=== PATIENT | male | born 1975 | race Caucasian/White ===

== ENCOUNTER 2017-04-16 10:13 | Inpatient (IN) | payer MEDICARE, OTHER ==
[~2017-04-16] VITALS: Ht 170.2 cm; Wt 115.0 kg
[~2017-04-16 10:13] MED LIST: ASPI81 PO; CLON2 PO; DIVA500T52 PO; DOCU250C91 PO; FOLI1TAB61 PO; INSNOV SQ; INSU100V12 SQ; QUET200XR PO; SEVEC800 PO; SIMV-259 PO; ZIPR60CA2 PO
[2017-04-16] MEDS ORDERED: LISI-662 PO (10:35)
[2017-04-16 10:52] LABS: GLUCOSE,POINT OF CARE 151 MG/DL (70-110)
[2017-04-16 11:16] LABS: BASOPHILS # (AUTO) 0.03 K/uL (0.00-0.20); BASOPHILS % (AUTO) 0.4 % (0.0-2.0); EOSINOPHILS # (AUTO) 0.55 K/uL (0.00-0.70); EOSINOPHILS % (AUTO) 6.59 % (1.0-6.0); HEMATOCRIT 38.4 % (41-53); HEMOGLOBIN 12.6 g/dL (13.5-17.5); LYMPHOCYTES # (AUTO) 1.8 K/uL (1.0-4.8); LYMPHOCYTES % (AUTO) 21.7 % (22.0-44.0); MEAN CORPUSCULAR HEMOGLOBIN 30.6 pg (26.0-34.0); MEAN CORPUSCULAR HGB CONC 32.8 G/dL (31.0-37.0); MEAN CORPUSCULAR VOLUME 93 fL (80-100); MONOCYTES # (AUTO) 0.6 K/uL (0.1-1.0); MONOCYTES % (AUTO) 7.5 % (2.0-9.0); NEUTROPHILS # (AUTO) 5.3 K/uL (1.8-7.7); NEUTROPHILS % (AUTO) 63.9 % (40.0-70.0); PLATELET COUNT (AUTO) 304 K/uL (150-450); RED BLOOD CELL COUNT(AUTO) 4.11 MIL/uL (4.50-5.90); RED CELL DISTRIBUTION WIDTH 17.2 % (11.5-14.5); WHITE BLOOD COUNT (AUTO) 8.3 K/uL (4.5-11.0)
[2017-04-16 11:29] LABS: ALANINE AMINOTRANSFERASE 43 U/L (12-78); ALBUMIN 3.6 g/dL (3.4-5.0); ANION GAP 14 mmol/L (8-16); ASPARTATE AMINOTRANSFERASE 28 U/L (15-37); BILIRUBIN,TOTAL 0.4 mg/dL (0.1-1.0); CALCIUM, TOTAL 9.6 mg/dL (8.8-10.5); CARBON DIOXIDE 25 mmol/L (22-29); CHLORIDE 92 mmol/L (98-107); CREATININE 12.65 mg/dL (0.60-1.30); GLOMERULAR FILTR. RATE CALC 4 mL/min (>60); SODIUM SERUM 131 mmol/L (136-145); TOTAL PROTEIN, SERUM 8.3 g/dL (6.4-8.2); VALPROIC ACID 29 mcg/mL (50-100)
[2017-04-16 11:33] LABS: POTASSIUM 6.7 mmol/L (3.5-5.1)
[2017-04-16 11:34] LABS: UREA NITROGEN, BLOOD 105 mg/dL (7-18)
[2017-04-16 11:41] LABS: RBC MORPHOLOGY COMMENT ABNORMAL RBC MORPH
[2017-04-16] MEDS ORDERED: DEXTROSE 50%-WATER 25 GM/50 ML SYRINGE IVP ONE (11:45)
[2017-04-16] MEDS ORDERED: SODIUM BICARBONATE [ADULT] 8.4% 50 MEQ/50 ML SYRINGE IVP ONE (11:45)
[2017-04-16] MEDS ORDERED: SODIUM POLYSTYRENE SULFONATE 15 GM/60 ML SUSPENSION BOTTLE PO ONE (11:45)
[2017-04-16] MEDS ORDERED: CALCIUM GLUCONATE 100 MG/ML 10 ML IVP ONE (11:45)
[2017-04-16] MEDS ORDERED: INSULIN REGULAR, HUMAN 100 UNITS/ML IVP ONE (11:45)
[2017-04-16] MEDS ORDERED: ZIPR80CA2 PO (11:50)
[2017-04-16] MEDS ORDERED: CLON1 PO (11:50)
[2017-04-16] MEDS ORDERED: SIMV-261 PO (11:50)
[2017-04-16] MEDS ORDERED: LORazepam 2 MG/ML VIAL IM ONE (12:00)
[2017-04-16] MEDS ORDERED: DiphenhydrAMINE HCL 50 MG/ML VIAL IM ONE (12:00)
[2017-04-16] MEDS ORDERED: HALOPERIDOL LACTATE 5 MG/ML VIAL IM ONE (12:00)
[2017-04-16] MEDS ORDERED: HEPARIN SODIUM,PORCINE 1,000 UNITS/ML VIAL IVP ONE ×3 (12:00→16:45)
[2017-04-16] MEDS ORDERED: OLANZapine 5 MG RAPDIS TABLET PO PRN (12:30)
[2017-04-16] MEDS ORDERED: GuaiFENesin/D-METHORPHAN [SUGAR-FREE] 200-20MG/10 ML SYRUP UDCUP PO PRN (12:30)
[2017-04-16] MEDS ORDERED: MAGNESIUM HYDROXIDE SUSPENSION 30 ML UDCUP PO PRN (12:30)
[2017-04-16] MEDS ORDERED: LOPERAMIDE HCL 2 MG CAPSULE PO PRN (12:30)
[2017-04-16] MEDS ORDERED: PROMETHAZINE HCL 25 MG TABLET PO PRN (12:30)
[2017-04-16] MEDS ORDERED: MAG HYDROX/AL HYDROX/SIMETH ES 30 ML SUSPENSION UDCUP PO PRN (12:30)
[2017-04-16] MEDS ORDERED: LORazepam 2 MG TABLET PO PRN (12:30)
[2017-04-16] MEDS ORDERED: ACETAMINOPHEN 325 MG TABLET PO PRN ×2 (12:30→13:00)
[2017-04-16] MEDS ORDERED: TUBERCULIN, PURIFIED PROTEIN DERIVATIVE 5 TU/0.1 ML SYG ID ONE (12:30)
[2017-04-16] MEDS ORDERED: HydrOXYzine PAMOATE 50 MG CAPSULE PO PRN (12:30)
[2017-04-16 15:11] VITALS: BP 152/68
[2017-04-16] MEDS ORDERED: MANNITOL 25%-12.5 GM/50 ML VIAL IVP PRN (16:45)
[2017-04-16 20:05] VITALS: BP 120/74
[2017-04-16] MEDS: DIVALPROEX SODIUM 500 MG ER TABLET PO SCH (21:29)
[2017-04-16] MEDS: OLANZapine 5 MG RAPDIS TABLET PO SCH (21:29)
[2017-04-16] MEDS: THIAMINE HCL 100 MG TABLET PO SCH (21:29)
[2017-04-16] MEDS: VITAMIN B COMP/VIT C/FOLIC ACID CAPSULE PO SCH (21:38)
[2017-04-17] VITALS (7 sets, daily range): BP systolic 92–135; BP diastolic 56–86
[2017-04-17] MEDS: DOCUSATE SODIUM 100 MG CAPSULE PO SCH ×3 (01:15→20:48)
[2017-04-17] MEDS ORDERED: DIVALPROEX SODIUM 500 MG ER TABLET PO SCH ×2 (01:15→21:00)
[2017-04-17] MEDS ORDERED: 0.9% SODIUM CHLORIDE 10 ML SYRINGE IVP PRN (01:15)
[2017-04-17] MEDS ORDERED: ONDANSETRON HCL 4 MG/2 ML VIAL IVP PRN (01:15)
[2017-04-17] MEDS ORDERED: OxyCODONE HCL/ACETAMINOPHEN 5-325 MG TABLET PO PRN ×2 (01:15)
[2017-04-17] MEDS: ClonazePAM 0.5 MG TABLET PO SCH ×3 (01:15→20:48)
[2017-04-17 07:08] LABS: EOSINOPHILS % (AUTO) 0.4 % (1.0-6.0); HEMATOCRIT 37.2 % (41-53); HEMOGLOBIN 12.6 g/dL (13.5-17.5); LYMPHOCYTES # (AUTO) 0.4 K/uL (1.0-4.8); MEAN CORPUSCULAR HEMOGLOBIN 31.2 pg (26.0-34.0); MEAN CORPUSCULAR HGB CONC 33.7 G/dL (31.0-37.0); MEAN CORPUSCULAR VOLUME 92 fL (80-100); MONOCYTES # (AUTO) 0.6 K/uL (0.1-1.0); MONOCYTES % (AUTO) 3.3 % (2.0-9.0); NEUTROPHILS # (AUTO) 17.2 K/uL (1.8-7.7); PLATELET COUNT (AUTO) 298 K/uL (150-450); RED BLOOD CELL COUNT(AUTO) 4.03 MIL/uL (4.50-5.90); RED CELL DISTRIBUTION WIDTH 17.5 % (11.5-14.5); WHITE BLOOD COUNT (AUTO) 18.2 K/uL (4.5-11.0)
[2017-04-17 07:09] LABS: NEUTROPHILS % (AUTO) 94.3 % (40.0-70.0)
[2017-04-17 07:23] LABS: ALBUMIN 3.1 g/dL (3.4-5.0); BILIRUBIN,TOTAL 0.5 mg/dL (0.1-1.0); CALCIUM, TOTAL 9.1 mg/dL (8.8-10.5); CHOL/HDL RATIO 4.2 (4.2-7.3); CREATININE 8.6 mg/dL (0.60-1.30); MAGNESIUM 2.1 mg/dL (1.80-2.40); PHOSPHORUS 6.3 mg/dL (2.5-4.9); POTASSIUM 4.5 mmol/L (3.5-5.1); THYROID STIMULATING HORMONE 1.25 uIU/mL (0.36-3.74); TOTAL PROTEIN, SERUM 7.5 g/dL (6.4-8.2)
[2017-04-17 07:40] LABS: HEMOGLOBIN A1C 7.6 % (4.5-6.2)
[2017-04-17 08:14] LABS: RBC MORPHOLOGY COMMENT ABNORMAL RBC MORPH
[2017-04-17] MEDS: VITAMIN B COMP/VIT C/FOLIC ACID CAPSULE PO SCH (08:17)
[2017-04-17] MEDS: ASPIRIN 81 MG CHEWABLE TABLET PO SCH (08:17)
[2017-04-17] MEDS: THIAMINE HCL 100 MG TABLET PO SCH ×2 (08:18→20:48)
[2017-04-17] MEDS: SEVELAMER CARBONATE 800 MG TABLET PO SCH (08:18)
[2017-04-17] MEDS: FOLIC ACID 1 MG TABLET PO SCH (08:18)
[2017-04-17] MEDS: MULTIVITAMINS WITH MINERALS, THERAPEUTIC TABLET PO SCH (08:20)
[2017-04-17] MEDS: PANTOPRAZOLE SODIUM 40 MG/VIAL IVP SCH (08:20)
[2017-04-17] MEDS ORDERED: DOCUSATE SODIUM 250 MG CAPSULE PO SCH (09:00)
[2017-04-17] MEDS ORDERED: ZIPRASIDONE HCL 80 MG CAPSULE PO SCH ×2 (18:00)
[2017-04-17] MEDS: SIMVASTATIN 40 MG TABLET PO SCH (20:48)
[2017-04-17] MEDS: OLANZapine 5 MG RAPDIS TABLET PO SCH (20:49)
[2017-04-17] MEDS: DIVALPROEX SODIUM 500 MG ER TABLET PO SCH (20:49)
[2017-04-17] MEDS: ACETAMINOPHEN 325 MG TABLET PO PRN (20:58)
[2017-04-17] MEDS: INSULIN DETEMIR 100 UNITS/ML SQ SCH (21:00)
[2017-04-18] VITALS (35 sets, daily range): BP systolic 72–148; BP diastolic 44–101
[2017-04-18] MEDS: ACETAMINOPHEN 325 MG TABLET PO PRN ×3 (01:39→22:12)
[2017-04-18 06:07] LABS: GLUCOSE,POINT OF CARE 114 MG/DL (70-110)
[2017-04-18 06:09] LABS: EOSINOPHILS % (AUTO) 0.1 % (1.0-6.0); HEMATOCRIT 35.4 % (41-53); HEMOGLOBIN 11.9 g/dL (13.5-17.5); LYMPHOCYTES # (AUTO) 0.6 K/uL (1.0-4.8); LYMPHOCYTES % (AUTO) 3.1 % (22.0-44.0); MEAN CORPUSCULAR HEMOGLOBIN 31.1 pg (26.0-34.0); MEAN CORPUSCULAR HGB CONC 33.7 G/dL (31.0-37.0); MEAN CORPUSCULAR VOLUME 92 fL (80-100); MONOCYTES # (AUTO) 0.9 K/uL (0.1-1.0); MONOCYTES % (AUTO) 4.6 % (2.0-9.0); NEUTROPHILS # (AUTO) 18.3 K/uL (1.8-7.7); PLATELET COUNT (AUTO) 257 K/uL (150-450); RED BLOOD CELL COUNT(AUTO) 3.83 MIL/uL (4.50-5.90); RED CELL DISTRIBUTION WIDTH 17.8 % (11.5-14.5); WHITE BLOOD COUNT (AUTO) 19.9 K/uL (4.5-11.0)
[2017-04-18 06:23] LABS: CALCIUM, TOTAL 8.9 mg/dL (8.8-10.5); CREATININE 11.17 mg/dL (0.60-1.30); POTASSIUM 4.8 mmol/L (3.5-5.1)
[2017-04-18 07:02] LABS: NEUTROPHILS % (AUTO) 92.2 % (40.0-70.0)
[2017-04-18 07:49] LABS: RBC MORPHOLOGY COMMENT ABNORMAL RBC MORPH
[2017-04-18] MEDS ORDERED: SODIUM CHLORIDE 0.9% 250 ML IV ONE ×2 (09:44→10:42)
[2017-04-18] MEDS ORDERED: PIPERACILLIN SODIUM/TAZOBACTAM 0.75 GM in DEXTROSE 5%-WATER 50 ML IV PRN (09:45)
[2017-04-18] MEDS ORDERED: VANCOMYCIN HCL 1 GM/D5% WATER 200 ML IV PRN (09:45)
[2017-04-18] MEDS: PANTOPRAZOLE SODIUM 40 MG/VIAL IVP SCH (09:50)
[2017-04-18] MEDS: MULTIVITAMINS WITH MINERALS, THERAPEUTIC TABLET PO SCH (09:50)
[2017-04-18] MEDS: ASPIRIN 81 MG CHEWABLE TABLET PO SCH (09:51)
[2017-04-18] MEDS: VITAMIN B COMP/VIT C/FOLIC ACID CAPSULE PO SCH (09:51)
[2017-04-18] MEDS: DOCUSATE SODIUM 100 MG CAPSULE PO SCH ×2 (09:51→22:11)
[2017-04-18] MEDS ORDERED: PIPERACILLIN SODIUM/TAZOBACTAM 2.25 GM in DEXTROSE 5%-WATER 50 ML IV SCH (10:00)
[2017-04-18] MEDS ORDERED: VANCOMYCIN HCL 1 GM/D5% WATER 200 ML IV ONE (10:00)
[2017-04-18] MEDS: THIAMINE HCL 100 MG TABLET PO SCH ×2 (10:29→22:10)
[2017-04-18] MEDS: SEVELAMER CARBONATE 800 MG TABLET PO SCH (10:31)
[2017-04-18 12:18] LABS: GLUCOSE,POINT OF CARE 123 MG/DL (70-110)
[2017-04-18] MEDS: ClonazePAM 1 MG TABLET PO SCH ×2 (12:26→23:07)
[2017-04-18] MEDS: FOLIC ACID 1 MG TABLET PO SCH (12:26)
[2017-04-18] MEDS ORDERED: GENTAMICIN 120 MG/NACL ISO-OSM 100 ML IV ONE (13:00)
[2017-04-18] MEDS: SIMVASTATIN 40 MG TABLET PO SCH (22:11)
[2017-04-18] MEDS: DIVALPROEX SODIUM 500 MG ER TABLET PO SCH (22:11)
[2017-04-18] MEDS: RisperiDONE 0.5 MG TABLET PO SCH (22:11)
[2017-04-18] MEDS: OLANZapine 5 MG RAPDIS TABLET PO SCH (22:12)
[2017-04-18] MEDS: INSULIN DETEMIR 100 UNITS/ML SQ SCH (22:17)
[2017-04-18] MEDS: ClonazePAM 0.5 MG TABLET PO SCH (22:51)
[2017-04-19 01:08] VITALS: BP 107/63
[2017-04-19 05:47] VITALS: BP 101/63
[2017-04-19 07:23] LABS: BASOPHILS # (AUTO) 0.01 K/uL (0.00-0.20); BASOPHILS % (AUTO) 0.1 % (0.0-2.0); EOSINOPHILS # (AUTO) 0.13 K/uL (0.00-0.70); EOSINOPHILS % (AUTO) 0.84 % (1.0-6.0); HEMATOCRIT 31.9 % (41-53); HEMOGLOBIN 10.7 g/dL (13.5-17.5); LYMPHOCYTES # (AUTO) 0.9 K/uL (1.0-4.8); LYMPHOCYTES % (AUTO) 6.1 % (22.0-44.0); MEAN CORPUSCULAR HEMOGLOBIN 30.9 pg (26.0-34.0); MEAN CORPUSCULAR HGB CONC 33.4 G/dL (31.0-37.0); MEAN CORPUSCULAR VOLUME 92 fL (80-100); MONOCYTES # (AUTO) 1.4 K/uL (0.1-1.0); MONOCYTES % (AUTO) 9.2 % (2.0-9.0); NEUTROPHILS # (AUTO) 12.9 K/uL (1.8-7.7); NEUTROPHILS % (AUTO) 83.7 % (40.0-70.0); PLATELET COUNT (AUTO) 205 K/uL (150-450); RED BLOOD CELL COUNT(AUTO) 3.45 MIL/uL (4.50-5.90); RED CELL DISTRIBUTION WIDTH 17.4 % (11.5-14.5); WHITE BLOOD COUNT (AUTO) 15.4 K/uL (4.5-11.0)
[2017-04-19 07:33] VITALS: BP 101/54
[2017-04-19 07:50] LABS: CALCIUM, TOTAL 8.9 mg/dL (8.8-10.5); CREATININE 13.51 mg/dL (0.60-1.30); POTASSIUM 4.7 mmol/L (3.5-5.1)
[2017-04-19 08:28] LABS: RBC MORPHOLOGY COMMENT ABNORMAL RBC MORPH
[2017-04-19] MEDS: SEVELAMER CARBONATE 800 MG TABLET PO SCH (09:00)
[2017-04-19] MEDS: PANTOPRAZOLE SODIUM 40 MG/VIAL IVP SCH (09:00)
[2017-04-19] MEDS: DOCUSATE SODIUM 100 MG CAPSULE PO SCH ×2 (09:00→20:01)
[2017-04-19] MEDS: RisperiDONE 0.5 MG TABLET PO SCH ×2 (09:02→20:02)
[2017-04-19] MEDS: ClonazePAM 0.5 MG TABLET PO SCH ×2 (09:11→20:02)
[2017-04-19] MEDS: FOLIC ACID 1 MG TABLET PO SCH (09:12)
[2017-04-19] MEDS: THIAMINE HCL 100 MG TABLET PO SCH ×2 (09:12→20:01)
[2017-04-19] MEDS: MULTIVITAMINS WITH MINERALS, THERAPEUTIC TABLET PO SCH (09:12)
[2017-04-19 09:13] LABS: INR 1.1 (0.9-1.1); PROTHROMBIN TIME 11.8 SEC (9.4-11.6)
[2017-04-19] MEDS: VITAMIN B COMP/VIT C/FOLIC ACID CAPSULE PO SCH (09:55)
[2017-04-19] MEDS ORDERED: LIDOCAINE HCL/PF 1% 5 ML VIAL ONE (10:25)
[2017-04-19 10:59] VITALS: BP 108/66
[2017-04-19] MEDS ORDERED: VANCOMYCIN HCL 1 GM/D5% WATER 200 ML IV ONE (11:00)
[2017-04-19] MEDS: ASPIRIN 81 MG CHEWABLE TABLET PO SCH (12:35)
[2017-04-19] MEDS ORDERED: SODIUM CHLORIDE 0.9% 250 ML IV ONE (13:25)
[2017-04-19 14:43] VITALS: BP 105/58
[2017-04-19 19:27] VITALS: BP 107/60
[2017-04-19] MEDS: OLANZapine 5 MG RAPDIS TABLET PO SCH (20:01)
[2017-04-19] MEDS: DIVALPROEX SODIUM 500 MG ER TABLET PO SCH (20:01)
[2017-04-19] MEDS: SIMVASTATIN 40 MG TABLET PO SCH (20:02)
[2017-04-19] MEDS: INSULIN DETEMIR 100 UNITS/ML SQ SCH (21:57)
[2017-04-19 23:32] LABS: GLUCOSE,POINT OF CARE 139 MG/DL (70-110)
[2017-04-20 05:33] LABS: GLUCOSE,POINT OF CARE 120 MG/DL (70-110)
[2017-04-20 05:37] LABS: GLUCOSE,POINT OF CARE 96 MG/DL (70-110)
[2017-04-20 05:37] LABS: GLUCOSE,POINT OF CARE 129 MG/DL (70-110)
[2017-04-20 05:37] LABS: GLUCOSE,POINT OF CARE 89 MG/DL (70-110)
[2017-04-20 05:37] LABS: GLUCOSE,POINT OF CARE 104 MG/DL (70-110)
[2017-04-20 05:37] LABS: GLUCOSE,POINT OF CARE 100 MG/DL (70-110)
== END 2017-04-20 01:30 | disposition left against medical advice (07) | DRG 314 ==
LOC: EMS 10:16 → 5S 13:15 → 4E 04-18 00:15 → 5S 04-18 15:00
PROVIDERS: ADMIT Internal Medicine; ATTEND Internal Medicine
PROC: 5A1D70Z Performance of Urinary Filtration, Intermittent, Less than 6 Hours Per Day (ICD-10-PCS; principal; 2017-04-16)
DX: T82.7XXA Infection and inflammatory reaction due to other cardiac and vascular devices, implants and grafts, initial encounter (principal); A41.9 Sepsis, unspecified organism; I12.0 Hypertensive chronic kidney disease with stage 5 chronic kidney disease or end stage renal disease; E11.21 Type 2 diabetes mellitus with diabetic nephropathy; E87.5 Hyperkalemia; N18.6 End stage renal disease; Z68.41 Body mass index [BMI] 40.0-44.9, adult; F25.0 Schizoaffective disorder, bipolar type; E11.22 Type 2 diabetes mellitus with diabetic chronic kidney disease; E66.9 Obesity, unspecified; B95.8 Unspecified staphylococcus as the cause of diseases classified elsewhere; B96.89 Other specified bacterial agents as the cause of diseases classified elsewhere; E78.5 Hyperlipidemia, unspecified; M10.9 Gout, unspecified; Y84.8 Other medical procedures as the cause of abnormal reaction of the patient, or of later complication, without mention of misadventure at the time of the procedure; Z79.4 Long term (current) use of insulin; Z79.82 Long term (current) use of aspirin; Z79.899 Other long term (current) drug therapy; Z91.15 Patient's noncompliance with renal dialysis; Z91.19 Patient's noncompliance with other medical treatment and regimen; Z99.2 Dependence on renal dialysis; Z53.21 Procedure and treatment not carried out due to patient leaving prior to being seen by health care provider
CPT/HCPCS: 36590; 82962; 83036; 83735; 84100; 84132; 84439; 84443; 86592; 87040; 87070; 87081; 87086; 87147; 87205; 87340; 90935; 93005; 96372; 99291; C9113; G0480; J1200; J1580; J1630; J1644; J2060; J2405; J2543; J3370; J3490; J7050; J7060

== ENCOUNTER 2018-01-08 17:17 | Inpatient (IN) | payer MEDICARE, OTHER ==
[~2018-01-08] VITALS: Ht 182.9 cm; Wt 92.4 kg
[~2018-01-08 17:17] MED LIST changes: +CLON1 PO; -CLON2 PO; +LISI-662 PO; -QUET200XR PO; -SIMV-259 PO; +SIMV-261 PO; -ZIPR60CA2 PO; +ZIPR80CA2 PO
[2018-01-08] MEDS ORDERED: EPOE10I SQ (18:16)
[2018-01-08] MEDS ORDERED: PHOSLOC PO (18:16)
[2018-01-08] MEDS ORDERED: CARV3 PO (18:16)
[2018-01-08] MEDS ORDERED: OLAN10TA3 PO (18:16)
[2018-01-08] MEDS ORDERED: CINA30 PO (18:16)
[2018-01-08] MEDS ORDERED: INSU100V SQ (18:16)
[2018-01-08] MEDS ORDERED: PANT40TA25 PO (18:16)
[2018-01-08] MEDS ORDERED: BISA10S PR (18:16)
[2018-01-08] MEDS ORDERED: FOLI1CAP2 PO (18:16)
[2018-01-08] MEDS ORDERED: BUME1TAB17 PO (18:16)
[2018-01-08] MEDS ORDERED: SIMV-261 PO (18:16)
[2018-01-08 20:10] LABS: GLUCOSE,POINT OF CARE 87 MG/DL (70-110)
[2018-01-08 20:22] LABS: BASOPHILS % (AUTO) 1.1 % (0.0-2.0); HEMATOCRIT 25.2 % (41-53); HEMOGLOBIN 8.5 g/dL (13.5-17.5); LYMPHOCYTES # (AUTO) 2.9 K/uL (1.0-4.8); LYMPHOCYTES % (AUTO) 37.3 % (22.0-44.0); MEAN CORPUSCULAR HEMOGLOBIN 30.7 pg (26.0-34.0); MEAN CORPUSCULAR HGB CONC 33.8 G/dL (31.0-37.0); MEAN CORPUSCULAR VOLUME 91 fL (80-100); MONOCYTES # (AUTO) 0.8 K/uL (0.1-1.0); MONOCYTES % (AUTO) 9.7 % (2.0-9.0); NEUTROPHILS # (AUTO) 3.9 K/uL (1.8-7.7); NEUTROPHILS % (AUTO) 50.9 % (40.0-70.0); PLATELET COUNT (AUTO) 283 K/uL (150-450); RED BLOOD CELL COUNT(AUTO) 2.77 MIL/uL (4.50-5.90); RED CELL DISTRIBUTION WIDTH 15.2 % (11.5-14.5)
[2018-01-08 20:46] LABS: ANION GAP 10 mmol/L (8-16); CALCIUM, TOTAL 8.8 mg/dL (8.8-10.5); CARBON DIOXIDE 30 mmol/L (22-29); CHLORIDE 103 mmol/L (98-107); CREATININE 8.79 mg/dL (0.60-1.30); GLOMERULAR FILTR. RATE CALC 7 mL/min (>60); GLUCOSE,RANDOM 86 mg/dL (70-110); POTASSIUM 5.7 mmol/L (3.5-5.1); SODIUM SERUM 143 mmol/L (136-145); UREA NITROGEN, BLOOD 67 mg/dL (7-18)
[2018-01-08 20:52] LABS: ALANINE AMINOTRANSFERASE 17 U/L (12-78); ALBUMIN 2.8 g/dL (3.4-5.0); ALKALINE PHOSPHATASE 119 U/L (46-116); ASPARTATE AMINOTRANSFERASE 17 U/L (15-37); BILIRUBIN,TOTAL 0.3 mg/dL (0.1-1.0); TOTAL PROTEIN, SERUM 6.9 g/dL (6.4-8.2)
[2018-01-08] MEDS ORDERED: INSULIN REGULAR, HUMAN 100 UNITS/ML SQ ONE (22:00)
[2018-01-08] MEDS ORDERED: DEXTROSE 50%-WATER 25 GM/50 ML SYRINGE IVP ONE (22:00)
[2018-01-08] MEDS ORDERED: ALBUTEROL SULFATE 5 MG/ML 20 ML NEB SOLN [BULK] NEB ONE (22:00)
[2018-01-08] MEDS ORDERED: SODIUM POLYSTYRENE SULFONATE 15 GM/60 ML SUSPENSION BOTTLE PO ONE (22:00)
[2018-01-08] MEDS ORDERED: HALOPERIDOL 5 MG TABLET PO ONE (22:15)
[2018-01-08] MEDS ORDERED: DiphenhydrAMINE HCL 25 MG CAPSULE PO ONE (22:15)
[2018-01-08] MEDS ORDERED: LORazepam 2 MG TABLET PO ONE (22:15)
[2018-01-08] MEDS ORDERED: 0.9% SODIUM CHLORIDE 5 ML NEB SOLUTION NEB ONE (22:36)
[2018-01-09 15:17] LABS: BASOPHILS % (AUTO) 0.7 % (0.0-2.0); EOSINOPHILS % (AUTO) 0.9 % (1.0-6.0); HEMATOCRIT 26.6 % (41-53); LYMPHOCYTES # (AUTO) 2.3 K/uL (1.0-4.8); LYMPHOCYTES % (AUTO) 30.6 % (22.0-44.0); MEAN CORPUSCULAR HEMOGLOBIN 30.8 pg (26.0-34.0); MEAN CORPUSCULAR VOLUME 91 fL (80-100); MONOCYTES # (AUTO) 0.5 K/uL (0.1-1.0); MONOCYTES % (AUTO) 6.9 % (2.0-9.0); NEUTROPHILS # (AUTO) 4.6 K/uL (1.8-7.7); NEUTROPHILS % (AUTO) 60.9 % (40.0-70.0); PLATELET COUNT (AUTO) 256 K/uL (150-450); RED BLOOD CELL COUNT(AUTO) 2.94 MIL/uL (4.50-5.90); RED CELL DISTRIBUTION WIDTH 15.2 % (11.5-14.5)
[2018-01-09 15:31] LABS: ANION GAP 15 mmol/L (8-16); CALCIUM, TOTAL 9.1 mg/dL (8.8-10.5); CARBON DIOXIDE 26 mmol/L (22-29); CHLORIDE 103 mmol/L (98-107); CREATININE 9.89 mg/dL (0.60-1.30); GLOMERULAR FILTR. RATE CALC 6 mL/min (>60); GLUCOSE,RANDOM 115 mg/dL (70-110); POTASSIUM 5.4 mmol/L (3.5-5.1); SODIUM SERUM 144 mmol/L (136-145); UREA NITROGEN, BLOOD 86 mg/dL (7-18)
[2018-01-09 15:33] LABS: ALANINE AMINOTRANSFERASE 19 U/L (12-78); ALBUMIN 2.9 g/dL (3.4-5.0); ALKALINE PHOSPHATASE 113 U/L (46-116); ASPARTATE AMINOTRANSFERASE 17 U/L (15-37); BILIRUBIN,TOTAL 0.5 mg/dL (0.1-1.0); LIPASE 173 U/L (73-393); TOTAL PROTEIN, SERUM 7.1 g/dL (6.4-8.2)
[2018-01-09 16:24] LABS: B-TYPE NATRIURETIC PEPTIDE > 5000 pg/mL (0-100)
[2018-01-10 08:07] LABS: BASOPHILS % (AUTO) 1.4 % (0.0-2.0); HEMATOCRIT 28.2 % (41-53); HEMOGLOBIN 9.5 g/dL (13.5-17.5); LYMPHOCYTES # (AUTO) 1.9 K/uL (1.0-4.8); LYMPHOCYTES % (AUTO) 20.6 % (22.0-44.0); MEAN CORPUSCULAR HEMOGLOBIN 30.5 pg (26.0-34.0); MEAN CORPUSCULAR HGB CONC 33.7 G/dL (31.0-37.0); MEAN CORPUSCULAR VOLUME 91 fL (80-100); MONOCYTES # (AUTO) 0.7 K/uL (0.1-1.0); NEUTROPHILS # (AUTO) 6.3 K/uL (1.8-7.7); PLATELET COUNT (AUTO) 238 K/uL (150-450); RED BLOOD CELL COUNT(AUTO) 3.11 MIL/uL (4.50-5.90); RED CELL DISTRIBUTION WIDTH 15.5 % (11.5-14.5)
[2018-01-10 08:15] LABS: CALCIUM, TOTAL 9.3 mg/dL (8.8-10.5); CREATININE 10.69 mg/dL (0.60-1.30); POTASSIUM 5.8 mmol/L (3.5-5.1)
[2018-01-10 08:20] LABS: BILIRUBIN,TOTAL 0.5 mg/dL (0.1-1.0); TOTAL PROTEIN, SERUM 7.4 g/dL (6.4-8.2)
[2018-01-10] MEDS ORDERED: ACETAMINOPHEN 325 MG TABLET PO PRN (08:30)
[2018-01-10] MEDS ORDERED: MAGNESIUM HYDROXIDE SUSPENSION 30 ML UDCUP PO PRN (08:30)
[2018-01-10] MEDS ORDERED: HYDROCODONE/ACETAMINOPHEN 5-325 MG TABLET PO PRN (08:30)
[2018-01-10] MEDS ORDERED: MORPHINE SULFATE 2 MG/ML SYRINGE IVP PRN (08:30)
[2018-01-10] MEDS ORDERED: BISACODYL 10 MG RECTAL RECTAL SUPPOSITORY PR PRN (08:30)
[2018-01-10] MEDS ORDERED: ONDANSETRON HCL 4 MG/2 ML VIAL IVP PRN (08:30)
[2018-01-10] MEDS ORDERED: ZOLPIDEM TARTRATE 5 MG TABLET PO PRN (08:30)
[2018-01-10] MEDS ORDERED: ClonazePAM 1 MG TABLET PO SCH (09:00)
[2018-01-10] MEDS ORDERED: DIVALPROEX SODIUM 500 MG ER TABLET PO SCH (09:00)
[2018-01-10 09:10] VITALS: BP 116/81
[2018-01-10] MEDS: PANTOPRAZOLE SODIUM 40 MG DR TABLET PO SCH (09:16)
[2018-01-10] MEDS: ASPIRIN 81 MG CHEWABLE TABLET PO SCH (09:16)
[2018-01-10] MEDS: CARVEDILOL 3.125 MG TABLET PO SCH ×2 (09:16→20:56)
[2018-01-10] MEDS: OLANZapine 10 MG TABLET PO SCH ×3 (09:16→21:00)
[2018-01-10] MEDS: SIMVASTATIN 40 MG TABLET PO SCH (09:16)
[2018-01-10] MEDS: DOCUSATE SODIUM 100 MG CAPSULE PO SCH ×2 (09:16→20:55)
[2018-01-10] MEDS: BUMETANIDE 1 MG TABLET PO SCH (09:17)
[2018-01-10] MEDS: CALCIUM ACETATE 667 MG CAPSULE PO SCH ×2 (15:50→18:13)
[2018-01-10] MEDS: HEPARIN SODIUM,PORCINE 5,000 UNITS/ML VIAL SQ SCH (15:50)
[2018-01-10 16:14] VITALS: BP 134/82
[2018-01-10 19:37] VITALS: BP 128/74
[2018-01-10] MEDS: DIVALPROEX SODIUM 500 MG ER TABLET PO SCH (20:55)
[2018-01-10 23:23] VITALS: BP 132/81
[2018-01-11 05:20] VITALS: BP 142/84
[2018-01-11] MEDS: HEPARIN SODIUM,PORCINE 5,000 UNITS/ML VIAL SQ SCH ×4 (08:18→23:30)
[2018-01-11] MEDS: PANTOPRAZOLE SODIUM 40 MG DR TABLET PO SCH (08:18)
[2018-01-11] MEDS: DOCUSATE SODIUM 100 MG CAPSULE PO SCH ×2 (08:18→20:03)
[2018-01-11] MEDS: SIMVASTATIN 40 MG TABLET PO SCH (08:18)
[2018-01-11] MEDS: CALCIUM ACETATE 667 MG CAPSULE PO SCH ×3 (08:18→18:29)
[2018-01-11] MEDS: ASPIRIN 81 MG CHEWABLE TABLET PO SCH (08:18)
[2018-01-11] MEDS: CINACALCET HCL 30 MG TABLET PO SCH (08:19)
[2018-01-11] MEDS: DIVALPROEX SODIUM 500 MG ER TABLET PO SCH ×2 (08:19→20:04)
[2018-01-11] MEDS: CARVEDILOL 3.125 MG TABLET PO SCH ×2 (08:19→20:03)
[2018-01-11 08:20] VITALS: BP 159/94
[2018-01-11] MEDS: BUMETANIDE 1 MG TABLET PO SCH (08:20)
[2018-01-11] MEDS: OLANZapine 10 MG TABLET PO SCH ×3 (08:20→20:03)
[2018-01-11] MEDS: VITAMIN B COMP/VIT C/FOLIC ACID CAPSULE PO SCH (10:25)
[2018-01-11] MEDS ORDERED: MANNITOL 25%-12.5 GM/50 ML VIAL IVP PRN (15:00)
[2018-01-11 15:50] VITALS: BP 158/100
[2018-01-11 20:48] VITALS: BP 152/86
[2018-01-12 01:12] VITALS: BP 143/77
[2018-01-12 05:00] VITALS: BP 148/84
[2018-01-12 07:45] VITALS: BP 128/81
[2018-01-12] MEDS: HEPARIN SODIUM,PORCINE 5,000 UNITS/ML VIAL SQ SCH ×4 (08:00→23:59)
[2018-01-12] MEDS: ASPIRIN 81 MG CHEWABLE TABLET PO SCH (08:03)
[2018-01-12] MEDS: VITAMIN B COMP/VIT C/FOLIC ACID CAPSULE PO SCH (08:03)
[2018-01-12] MEDS: PANTOPRAZOLE SODIUM 40 MG DR TABLET PO SCH (08:03)
[2018-01-12] MEDS: SIMVASTATIN 40 MG TABLET PO SCH (08:03)
[2018-01-12] MEDS: CARVEDILOL 3.125 MG TABLET PO SCH ×2 (08:03→19:49)
[2018-01-12] MEDS: DOCUSATE SODIUM 100 MG CAPSULE PO SCH ×2 (08:03→19:49)
[2018-01-12] MEDS: OLANZapine 10 MG TABLET PO SCH ×2 (08:04→19:49)
[2018-01-12] MEDS: CINACALCET HCL 30 MG TABLET PO SCH (08:04)
[2018-01-12] MEDS: CALCIUM ACETATE 667 MG CAPSULE PO SCH ×3 (08:04→17:38)
[2018-01-12] MEDS: DIVALPROEX SODIUM 500 MG ER TABLET PO SCH ×2 (08:04→19:49)
[2018-01-12] MEDS: BUMETANIDE 1 MG TABLET PO SCH (08:04)
[2018-01-12 11:25] VITALS: BP 145/92
[2018-01-12 11:58] LABS: GLUCOMETER DEV NAME(LOC) 6N 1E; GLUCOSE,POINT OF CARE 135 MG/DL (70-110)
[2018-01-12 12:49] LABS: CALCIUM, TOTAL 8.7 mg/dL (8.8-10.5); CREATININE 7.8 mg/dL (0.60-1.30); POTASSIUM 4.8 mmol/L (3.5-5.1)
[2018-01-12 15:45] VITALS: BP 132/85
[2018-01-12 19:48] LABS: GLUCOMETER DEV NAME(LOC) 6N 1E; GLUCOSE,POINT OF CARE 77 MG/DL (70-110)
[2018-01-12 19:50] VITALS: BP 143/85
[2018-01-13 00:06] VITALS: BP 143/93
[2018-01-13 04:00] VITALS: BP 118/85
[2018-01-13 06:36] LABS: CALCIUM, TOTAL 8.5 mg/dL (8.8-10.5); CREATININE 9.69 mg/dL (0.60-1.30); POTASSIUM 5.8 mmol/L (3.5-5.1)
[2018-01-13] MEDS ORDERED: SODIUM POLYSTYRENE SULFONATE 15 GM/60 ML SUSPENSION BOTTLE PO ONE (07:00)
[2018-01-13 07:44] VITALS: BP 120/87
[2018-01-13] MEDS: HEPARIN SODIUM,PORCINE 5,000 UNITS/ML VIAL SQ SCH ×3 (08:00→16:00)
[2018-01-13] MEDS: CALCIUM ACETATE 667 MG CAPSULE PO SCH ×3 (08:03→17:10)
[2018-01-13] MEDS: OLANZapine 10 MG TABLET PO SCH ×2 (08:03→19:54)
[2018-01-13] MEDS: VITAMIN B COMP/VIT C/FOLIC ACID CAPSULE PO SCH (08:03)
[2018-01-13] MEDS: PANTOPRAZOLE SODIUM 40 MG DR TABLET PO SCH (08:03)
[2018-01-13] MEDS: SIMVASTATIN 40 MG TABLET PO SCH (08:03)
[2018-01-13] MEDS: CARVEDILOL 3.125 MG TABLET PO SCH ×2 (08:03→19:54)
[2018-01-13] MEDS: ASPIRIN 81 MG CHEWABLE TABLET PO SCH (08:03)
[2018-01-13] MEDS: BUMETANIDE 1 MG TABLET PO SCH (08:03)
[2018-01-13] MEDS: DOCUSATE SODIUM 100 MG CAPSULE PO SCH ×2 (08:03→19:55)
[2018-01-13] MEDS: CINACALCET HCL 30 MG TABLET PO SCH (08:04)
[2018-01-13] MEDS: DIVALPROEX SODIUM 500 MG ER TABLET PO SCH ×2 (08:05→19:56)
[2018-01-13 12:22] VITALS: BP 135/75
[2018-01-13] MEDS ORDERED: SODIUM CHLORIDE 0.9% 1,000 ML IV ONE (12:27)
[2018-01-13 12:28] LABS: GLUCOMETER DEV NAME(LOC) 6N 2D; GLUCOSE,POINT OF CARE 158 MG/DL (70-110)
[2018-01-13 15:18] LABS: GLUCOMETER DEV NAME(LOC) 6N 1E; GLUCOSE,POINT OF CARE 95 MG/DL (70-110)
[2018-01-13 17:01] VITALS: BP 145/85
[2018-01-13 19:30] VITALS: BP 150/87
[2018-01-14 00:07] VITALS: BP 146/78
[2018-01-14 04:45] VITALS: BP 162/106
[2018-01-14 05:59] LABS: GLUCOMETER DEV NAME(LOC) 6N 2D; GLUCOSE,POINT OF CARE 95 MG/DL (70-110)
[2018-01-14 07:06] LABS: CALCIUM, TOTAL 8.6 mg/dL (8.8-10.5); CREATININE 7.12 mg/dL (0.60-1.30); MAGNESIUM 1.8 mg/dL (1.80-2.40); PHOSPHORUS 4.9 mg/dL (2.5-4.9); POTASSIUM 4.3 mmol/L (3.5-5.1)
[2018-01-14] MEDS: HEPARIN SODIUM,PORCINE 5,000 UNITS/ML VIAL SQ SCH ×4 (08:00→23:13)
[2018-01-14] MEDS: VITAMIN B COMP/VIT C/FOLIC ACID CAPSULE PO SCH (08:47)
[2018-01-14] MEDS: DOCUSATE SODIUM 100 MG CAPSULE PO SCH ×2 (08:48→19:58)
[2018-01-14] MEDS: CALCIUM ACETATE 667 MG CAPSULE PO SCH ×3 (08:48→17:44)
[2018-01-14] MEDS: DIVALPROEX SODIUM 500 MG ER TABLET PO SCH ×2 (08:48→19:59)
[2018-01-14] MEDS: CARVEDILOL 3.125 MG TABLET PO SCH ×2 (08:49→19:58)
[2018-01-14] MEDS: OLANZapine 10 MG TABLET PO SCH ×2 (08:49→19:59)
[2018-01-14] MEDS: BUMETANIDE 1 MG TABLET PO SCH (08:49)
[2018-01-14] MEDS: CINACALCET HCL 30 MG TABLET PO SCH (08:50)
[2018-01-14] MEDS: ASPIRIN 81 MG CHEWABLE TABLET PO SCH (08:50)
[2018-01-14] MEDS: PANTOPRAZOLE SODIUM 40 MG DR TABLET PO SCH (08:50)
[2018-01-14] MEDS: SIMVASTATIN 40 MG TABLET PO SCH (08:50)
[2018-01-14 08:54] VITALS: BP 130/65
[2018-01-14] MEDS: EPOETIN ALFA 10,000 UNITS/ML VIAL SQ SCH ×2 (12:16→17:41)
[2018-01-14 19:19] LABS: GLUCOMETER DEV NAME(LOC) 6N 2D; GLUCOSE,POINT OF CARE 98 MG/DL (70-110)
[2018-01-14 19:19] LABS: GLUCOMETER DEV NAME(LOC) 6N 2D; GLUCOSE,POINT OF CARE 123 MG/DL (70-110)
[2018-01-14 19:27] VITALS: BP 153/85
[2018-01-14 20:34] LABS: GLUCOMETER DEV NAME(LOC) 6N 1E; GLUCOSE,POINT OF CARE 151 MG/DL (70-110)
[2018-01-14 23:30] VITALS: BP 145/72
[2018-01-15 04:04] VITALS: BP 139/88
[2018-01-15 06:11] LABS: GLUCOMETER DEV NAME(LOC) 6N 1E; GLUCOSE,POINT OF CARE 86 MG/DL (70-110)
[2018-01-15 07:17] VITALS: BP 145/89
[2018-01-15] MEDS ORDERED: SODIUM CHLORIDE 0.9% 2,000 ML IV ONE (07:33)
[2018-01-15] MEDS: HALOPERIDOL 1 MG TABLET PO PRN (07:40)
[2018-01-15] MEDS: LORazepam 1 MG TABLET PO PRN ×2 (07:40→16:02)
[2018-01-15] MEDS: CALCIUM ACETATE 667 MG CAPSULE PO SCH ×3 (08:00→18:33)
[2018-01-15] MEDS: HEPARIN SODIUM,PORCINE 5,000 UNITS/ML VIAL SQ SCH ×4 (08:00→23:49)
[2018-01-15] MEDS ORDERED: MANNITOL 25%-12.5 GM/50 ML VIAL IVP PRN (08:15)
[2018-01-15 12:13] VITALS: BP 138/86
[2018-01-15] MEDS: PANTOPRAZOLE SODIUM 40 MG DR TABLET PO SCH (12:14)
[2018-01-15] MEDS: CINACALCET HCL 30 MG TABLET PO SCH (12:14)
[2018-01-15] MEDS: SIMVASTATIN 40 MG TABLET PO SCH (12:14)
[2018-01-15] MEDS: CARVEDILOL 3.125 MG TABLET PO SCH ×2 (12:14→21:10)
[2018-01-15] MEDS: DOCUSATE SODIUM 100 MG CAPSULE PO SCH ×2 (12:14→21:10)
[2018-01-15] MEDS: ASPIRIN 81 MG CHEWABLE TABLET PO SCH (12:14)
[2018-01-15] MEDS: DIVALPROEX SODIUM 500 MG ER TABLET PO SCH ×2 (12:15→21:11)
[2018-01-15] MEDS: OLANZapine 10 MG TABLET PO SCH ×2 (12:15→21:11)
[2018-01-15] MEDS: BUMETANIDE 1 MG TABLET PO SCH (12:15)
[2018-01-15 12:23] LABS: GLUCOMETER DEV NAME(LOC) 6N 2D; GLUCOSE,POINT OF CARE 189 MG/DL (70-110)
[2018-01-15] MEDS: VITAMIN B COMP/VIT C/FOLIC ACID CAPSULE PO SCH (12:28)
[2018-01-15 16:38] VITALS: BP 139/88
[2018-01-15 17:24] LABS: GLUCOMETER DEV NAME(LOC) 6N 2D; GLUCOSE,POINT OF CARE 96 MG/DL (70-110)
[2018-01-15 20:15] VITALS: BP 143/77
[2018-01-16 00:20] VITALS: BP 140/93
[2018-01-16 05:45] VITALS: BP 138/84
[2018-01-16 07:26] VITALS: BP 172/99
[2018-01-16] MEDS: HEPARIN SODIUM,PORCINE 5,000 UNITS/ML VIAL SQ SCH ×4 (08:00→23:57)
[2018-01-16 08:19] LABS: GLUCOMETER DEV NAME(LOC) 6N 2D; GLUCOSE,POINT OF CARE 77 MG/DL (70-110)
[2018-01-16] MEDS: EPOETIN ALFA 10,000 UNITS/ML VIAL SQ SCH ×2 (09:00→09:07)
[2018-01-16] MEDS: CINACALCET HCL 30 MG TABLET PO SCH (09:05)
[2018-01-16] MEDS: DIVALPROEX SODIUM 500 MG ER TABLET PO SCH ×2 (09:05→21:10)
[2018-01-16] MEDS: CARVEDILOL 3.125 MG TABLET PO SCH ×2 (09:05→21:11)
[2018-01-16] MEDS: BUMETANIDE 1 MG TABLET PO SCH (09:05)
[2018-01-16] MEDS: ASPIRIN 81 MG CHEWABLE TABLET PO SCH (09:06)
[2018-01-16] MEDS: DOCUSATE SODIUM 100 MG CAPSULE PO SCH ×2 (09:06→21:11)
[2018-01-16] MEDS: PANTOPRAZOLE SODIUM 40 MG DR TABLET PO SCH (09:06)
[2018-01-16] MEDS: OLANZapine 10 MG TABLET PO SCH ×2 (09:06→21:00)
[2018-01-16] MEDS: CALCIUM ACETATE 667 MG CAPSULE PO SCH ×3 (09:06→17:16)
[2018-01-16] MEDS: SIMVASTATIN 40 MG TABLET PO SCH (09:06)
[2018-01-16 11:04] VITALS: BP 119/95
[2018-01-16 13:18] LABS: GLUCOMETER DEV NAME(LOC) 6N 2D; GLUCOSE,POINT OF CARE 105 MG/DL (70-110)
[2018-01-16 15:04] VITALS: BP 150/91
[2018-01-16 20:10] VITALS: BP 128/81
[2018-01-16 22:18] LABS: GLUCOMETER DEV NAME(LOC) 6N 2D; GLUCOSE,POINT OF CARE 117 MG/DL (70-110)
[2018-01-17 00:55] VITALS: BP 146/83
[2018-01-17 05:40] VITALS: BP 123/81
[2018-01-17 06:49] LABS: GLUCOMETER DEV NAME(LOC) 6N 1E; GLUCOSE,POINT OF CARE 100 MG/DL (70-110)
[2018-01-17 07:46] VITALS: BP 149/99
[2018-01-17] MEDS: CARVEDILOL 3.125 MG TABLET PO SCH ×2 (09:00→20:04)
[2018-01-17] MEDS: VITAMIN B COMP/VIT C/FOLIC ACID CAPSULE PO SCH (09:59)
[2018-01-17] MEDS: CINACALCET HCL 30 MG TABLET PO SCH (09:59)
[2018-01-17] MEDS: OLANZapine 10 MG TABLET PO SCH ×2 (09:59→20:04)
[2018-01-17] MEDS: DIVALPROEX SODIUM 500 MG ER TABLET PO SCH ×2 (09:59→20:04)
[2018-01-17] MEDS: PANTOPRAZOLE SODIUM 40 MG DR TABLET PO SCH (09:59)
[2018-01-17] MEDS: HEPARIN SODIUM,PORCINE 5,000 UNITS/ML VIAL SQ SCH ×3 (09:59→23:19)
[2018-01-17] MEDS: CALCIUM ACETATE 667 MG CAPSULE PO SCH ×3 (09:59→17:37)
[2018-01-17] MEDS: DOCUSATE SODIUM 100 MG CAPSULE PO SCH ×2 (09:59→20:04)
[2018-01-17] MEDS: SIMVASTATIN 40 MG TABLET PO SCH (10:00)
[2018-01-17] MEDS: BUMETANIDE 1 MG TABLET PO SCH (10:00)
[2018-01-17] MEDS: HALOPERIDOL 1 MG TABLET PO PRN (10:00)
[2018-01-17] MEDS: ASPIRIN 81 MG CHEWABLE TABLET PO SCH (10:00)
[2018-01-17] MEDS ORDERED: SODIUM CHLORIDE 0.9% 2,000 ML IV ONE (10:12)
[2018-01-17 15:30] VITALS: BP 142/79
[2018-01-17 18:09] LABS: GLUCOMETER DEV NAME(LOC) 6N 2D; GLUCOSE,POINT OF CARE 131 MG/DL (70-110)
[2018-01-17 19:36] VITALS: BP 132/76
[2018-01-17 21:19] LABS: GLUCOMETER DEV NAME(LOC) 6N 1E; GLUCOSE,POINT OF CARE 133 MG/DL (70-110)
[2018-01-17 23:11] VITALS: BP 145/89
[2018-01-18] VITALS (7 sets, daily range): BP systolic 109–151; BP diastolic 57–95
[2018-01-18 05:34] LABS: GLUCOMETER DEV NAME(LOC) 6N 1E; GLUCOSE,POINT OF CARE 92 MG/DL (70-110)
[2018-01-18] MEDS: BUMETANIDE 1 MG TABLET PO SCH (08:24)
[2018-01-18] MEDS: ASPIRIN 81 MG CHEWABLE TABLET PO SCH (08:24)
[2018-01-18] MEDS: HEPARIN SODIUM,PORCINE 5,000 UNITS/ML VIAL SQ SCH ×3 (08:24→23:32)
[2018-01-18] MEDS: DOCUSATE SODIUM 100 MG CAPSULE PO SCH ×2 (08:25→20:10)
[2018-01-18] MEDS: SIMVASTATIN 40 MG TABLET PO SCH (08:25)
[2018-01-18] MEDS: CALCIUM ACETATE 667 MG CAPSULE PO SCH ×3 (08:25→17:15)
[2018-01-18] MEDS: PANTOPRAZOLE SODIUM 40 MG DR TABLET PO SCH (08:25)
[2018-01-18] MEDS: CARVEDILOL 3.125 MG TABLET PO SCH ×3 (08:25→20:10)
[2018-01-18] MEDS: CINACALCET HCL 30 MG TABLET PO SCH (08:26)
[2018-01-18] MEDS: DIVALPROEX SODIUM 500 MG ER TABLET PO SCH ×2 (08:26→20:11)
[2018-01-18] MEDS: VITAMIN B COMP/VIT C/FOLIC ACID CAPSULE PO SCH (08:27)
[2018-01-18] MEDS: OLANZapine 10 MG TABLET PO SCH ×2 (08:28→20:10)
[2018-01-18] MEDS: EPOETIN ALFA 10,000 UNITS/ML VIAL SQ SCH (08:30)
[2018-01-18 20:14] LABS: GLUCOMETER DEV NAME(LOC) 6N 2D; GLUCOSE,POINT OF CARE 150 MG/DL (70-110)
[2018-01-18 20:14] LABS: GLUCOMETER DEV NAME(LOC) 6N 2D; GLUCOSE,POINT OF CARE 77 MG/DL (70-110)
[2018-01-19 04:39] VITALS: BP 123/64
[2018-01-19 07:19] LABS: GLUCOMETER DEV NAME(LOC) 6N 2D; GLUCOSE,POINT OF CARE 146 MG/DL (70-110)
[2018-01-19 07:19] LABS: GLUCOMETER DEV NAME(LOC) 6N 1E; GLUCOSE,POINT OF CARE 72 MG/DL (70-110)
[2018-01-19 07:59] VITALS: BP 135/93
[2018-01-19] MEDS: HEPARIN SODIUM,PORCINE 5,000 UNITS/ML VIAL SQ SCH ×3 (08:00→15:14)
[2018-01-19] MEDS: CALCIUM ACETATE 667 MG CAPSULE PO SCH ×3 (08:04→17:17)
[2018-01-19] MEDS: OLANZapine 10 MG TABLET PO SCH ×2 (08:04→20:32)
[2018-01-19] MEDS: CINACALCET HCL 30 MG TABLET PO SCH (08:04)
[2018-01-19] MEDS: DIVALPROEX SODIUM 500 MG ER TABLET PO SCH ×2 (08:04→20:31)
[2018-01-19] MEDS: BUMETANIDE 1 MG TABLET PO SCH (08:04)
[2018-01-19] MEDS: DOCUSATE SODIUM 100 MG CAPSULE PO SCH ×2 (08:04→20:30)
[2018-01-19] MEDS: SIMVASTATIN 40 MG TABLET PO SCH (08:05)
[2018-01-19] MEDS: ASPIRIN 81 MG CHEWABLE TABLET PO SCH (08:05)
[2018-01-19] MEDS: PANTOPRAZOLE SODIUM 40 MG DR TABLET PO SCH (08:05)
[2018-01-19] MEDS: VITAMIN B COMP/VIT C/FOLIC ACID CAPSULE PO SCH (08:05)
[2018-01-19] MEDS: HALOPERIDOL 1 MG TABLET PO PRN (08:06)
[2018-01-19] MEDS: CARVEDILOL 3.125 MG TABLET PO SCH ×2 (08:07→20:30)
[2018-01-19] MEDS: LORazepam 1 MG TABLET PO PRN (11:11)
[2018-01-19 12:00] LABS: GLUCOMETER DEV NAME(LOC) 6N 2D; GLUCOSE,POINT OF CARE 156 MG/DL (70-110)
[2018-01-19 17:34] LABS: GLUCOMETER DEV NAME(LOC) 6N 1E; GLUCOSE,POINT OF CARE 67 MG/DL (70-110)
[2018-01-19] MEDS ORDERED: LIDOCAINE HCL/PF 1% 2 ML VIAL IM ONE (17:45)
[2018-01-19 20:05] VITALS: BP 127/57
[2018-01-19 21:23] LABS: GLUCOMETER DEV NAME(LOC) 6N 1E; GLUCOSE,POINT OF CARE 163 MG/DL (70-110)
[2018-01-20] VITALS (7 sets, daily range): BP systolic 113–138; BP diastolic 63–78
[2018-01-20 07:04] LABS: GLUCOMETER DEV NAME(LOC) 6N 1E; GLUCOSE,POINT OF CARE 111 MG/DL (70-110)
[2018-01-20] MEDS: HEPARIN SODIUM,PORCINE 5,000 UNITS/ML VIAL SQ SCH ×3 (07:36→14:07)
[2018-01-20] MEDS: DOCUSATE SODIUM 100 MG CAPSULE PO SCH ×2 (07:52→20:15)
[2018-01-20] MEDS: CINACALCET HCL 30 MG TABLET PO SCH (07:52)
[2018-01-20] MEDS: DIVALPROEX SODIUM 500 MG ER TABLET PO SCH ×2 (07:52→20:15)
[2018-01-20] MEDS: BUMETANIDE 1 MG TABLET PO SCH (07:52)
[2018-01-20] MEDS: PANTOPRAZOLE SODIUM 40 MG DR TABLET PO SCH (07:53)
[2018-01-20] MEDS: CALCIUM ACETATE 667 MG CAPSULE PO SCH ×3 (07:53→17:12)
[2018-01-20] MEDS: SIMVASTATIN 40 MG TABLET PO SCH (07:53)
[2018-01-20] MEDS: OLANZapine 10 MG TABLET PO SCH ×2 (07:53→20:15)
[2018-01-20] MEDS: ASPIRIN 81 MG CHEWABLE TABLET PO SCH (07:53)
[2018-01-20] MEDS: VITAMIN B COMP/VIT C/FOLIC ACID CAPSULE PO SCH (07:53)
[2018-01-20] MEDS: CARVEDILOL 3.125 MG TABLET PO SCH ×2 (07:53→20:15)
[2018-01-20 12:43] LABS: GLUCOMETER DEV NAME(LOC) 6N 2D; GLUCOSE,POINT OF CARE 124 MG/DL (70-110)
[2018-01-20 19:48] LABS: GLUCOMETER DEV NAME(LOC) 6N 1E; GLUCOSE,POINT OF CARE 135 MG/DL (70-110)
[2018-01-20 22:34] LABS: GLUCOMETER DEV NAME(LOC) 6N 1E; GLUCOSE,POINT OF CARE 145 MG/DL (70-110)
[2018-01-21 03:30] VITALS: BP 128/70
[2018-01-21 06:48] LABS: GLUCOMETER DEV NAME(LOC) 6N 1E; GLUCOSE,POINT OF CARE 68 MG/DL (70-110)
[2018-01-21] MEDS: HEPARIN SODIUM,PORCINE 5,000 UNITS/ML VIAL SQ SCH ×4 (08:00→16:00)
[2018-01-21] MEDS: DOCUSATE SODIUM 100 MG CAPSULE PO SCH ×2 (08:59→20:18)
[2018-01-21] MEDS: CINACALCET HCL 30 MG TABLET PO SCH (08:59)
[2018-01-21] MEDS: SIMVASTATIN 40 MG TABLET PO SCH (08:59)
[2018-01-21] MEDS: CALCIUM ACETATE 667 MG CAPSULE PO SCH ×3 (08:59→19:26)
[2018-01-21] MEDS: BUMETANIDE 1 MG TABLET PO SCH (09:00)
[2018-01-21] MEDS: DIVALPROEX SODIUM 500 MG ER TABLET PO SCH ×2 (09:00→20:17)
[2018-01-21] MEDS: ASPIRIN 81 MG CHEWABLE TABLET PO SCH (09:00)
[2018-01-21] MEDS: PANTOPRAZOLE SODIUM 40 MG DR TABLET PO SCH (09:00)
[2018-01-21] MEDS: VITAMIN B COMP/VIT C/FOLIC ACID CAPSULE PO SCH (09:00)
[2018-01-21] MEDS: EPOETIN ALFA 10,000 UNITS/ML VIAL SQ SCH ×2 (09:00→09:01)
[2018-01-21] MEDS: OLANZapine 10 MG TABLET PO SCH ×2 (09:02→20:17)
[2018-01-21 09:41] LABS: EOSINOPHILS % (AUTO) 1.3 % (1.0-6.0); HEMATOCRIT 23.6 % (41-53); LYMPHOCYTES # (AUTO) 1.4 K/uL (1.0-4.8); LYMPHOCYTES % (AUTO) 28.5 % (22.0-44.0); MEAN CORPUSCULAR HEMOGLOBIN 31.1 pg (26.0-34.0); MEAN CORPUSCULAR VOLUME 91 fL (80-100); MONOCYTES # (AUTO) 0.4 K/uL (0.1-1.0); NEUTROPHILS # (AUTO) 3.1 K/uL (1.8-7.7); NEUTROPHILS % (AUTO) 61.2 % (40.0-70.0); PLATELET COUNT (AUTO) 108 K/uL (150-450); RED BLOOD CELL COUNT(AUTO) 2.58 MIL/uL (4.50-5.90); RED CELL DISTRIBUTION WIDTH 15.4 % (11.5-14.5)
[2018-01-21 09:54] LABS: CALCIUM, TOTAL 8.2 mg/dL (8.8-10.5); CREATININE 5.96 mg/dL (0.60-1.30); POTASSIUM 4.7 mmol/L (3.5-5.1)
[2018-01-21 11:54] LABS: GLUCOMETER DEV NAME(LOC) 6N 2D; GLUCOSE,POINT OF CARE 110 MG/DL (70-110)
[2018-01-21] MEDS: CARVEDILOL 3.125 MG TABLET PO SCH ×2 (12:15→20:17)
[2018-01-21 13:33] LABS: PHOSPHORUS 3.9 mg/dL (2.5-4.9)
[2018-01-21 16:09] VITALS: BP 132/85
[2018-01-21 19:00] VITALS: BP 126/72
[2018-01-21 19:48] LABS: GLUCOMETER DEV NAME(LOC) 6N 2D; GLUCOSE,POINT OF CARE 117 MG/DL (70-110)
[2018-01-21 22:14] LABS: GLUCOMETER DEV NAME(LOC) 6N 1E; GLUCOSE,POINT OF CARE 130 MG/DL (70-110)
[2018-01-21 23:00] VITALS: BP 116/66
[2018-01-22 04:02] VITALS: BP 115/62
[2018-01-22 06:40] LABS: GLUCOMETER DEV NAME(LOC) 6N 2D; GLUCOSE,POINT OF CARE 86 MG/DL (70-110)
[2018-01-22 08:10] VITALS: BP 105/56
[2018-01-22] MEDS: DOCUSATE SODIUM 100 MG CAPSULE PO SCH (09:00)
[2018-01-22] MEDS: BUMETANIDE 1 MG TABLET PO SCH (09:14)
[2018-01-22] MEDS: HEPARIN SODIUM,PORCINE 5,000 UNITS/ML VIAL SQ SCH ×2 (09:14)
[2018-01-22] MEDS: ASPIRIN 81 MG CHEWABLE TABLET PO SCH (09:14)
[2018-01-22] MEDS: PANTOPRAZOLE SODIUM 40 MG DR TABLET PO SCH (09:14)
[2018-01-22] MEDS: SIMVASTATIN 40 MG TABLET PO SCH (09:14)
[2018-01-22] MEDS: CALCIUM ACETATE 667 MG CAPSULE PO SCH ×2 (09:14→12:12)
[2018-01-22] MEDS: CARVEDILOL 3.125 MG TABLET PO SCH (09:14)
[2018-01-22] MEDS: DIVALPROEX SODIUM 500 MG ER TABLET PO SCH (09:15)
[2018-01-22] MEDS: OLANZapine 10 MG TABLET PO SCH (09:15)
[2018-01-22] MEDS: LORazepam 1 MG TABLET PO PRN (09:15)
[2018-01-22] MEDS: CINACALCET HCL 30 MG TABLET PO SCH (09:15)
[2018-01-22] MEDS: VITAMIN B COMP/VIT C/FOLIC ACID CAPSULE PO SCH (09:17)
[2018-01-22 11:23] VITALS: BP 99/67
[2018-01-22 13:24] LABS: GLUCOMETER DEV NAME(LOC) 6N 2D; GLUCOSE,POINT OF CARE 111 MG/DL (70-110)
[2018-01-22 15:30] VITALS: BP 110/64
[2018-01-22] MEDS ORDERED: HEPARIN SODIUM,PORCINE 5,000 UNITS/ML VIAL SQ SCH (21:00)
== END 2018-01-22 17:25 | DRG 291 ==
LOC: EMS 17:18 → 5S 01-10 01:00 → 6N 01-11 19:00
PROVIDERS: ADMIT Internal Medicine; ATTEND Internal Medicine
PROC: 5A1D70Z Performance of Urinary Filtration, Intermittent, Less than 6 Hours Per Day (ICD-10-PCS; principal; 2018-01-11)
PROC: 5A1D70Z Performance of Urinary Filtration, Intermittent, Less than 6 Hours Per Day (ICD-10-PCS; 2018-01-15)
PROC: 5A1D70Z Performance of Urinary Filtration, Intermittent, Less than 6 Hours Per Day (ICD-10-PCS; 2018-01-17)
PROC: 5A1D70Z Performance of Urinary Filtration, Intermittent, Less than 6 Hours Per Day (ICD-10-PCS; 2018-01-19)
PROC: 5A1D70Z Performance of Urinary Filtration, Intermittent, Less than 6 Hours Per Day (ICD-10-PCS; 2018-01-21)
DX: I13.2 Hypertensive heart and chronic kidney disease with heart failure and with stage 5 chronic kidney disease, or end stage renal disease (principal); N18.6 End stage renal disease; I50.33 Acute on chronic diastolic (congestive) heart failure; F25.0 Schizoaffective disorder, bipolar type; E11.22 Type 2 diabetes mellitus with diabetic chronic kidney disease; E78.00 Pure hypercholesterolemia, unspecified; E87.5 Hyperkalemia; D64.9 Anemia, unspecified; E78.5 Hyperlipidemia, unspecified; F32.9 Major depressive disorder, single episode, unspecified; M10.9 Gout, unspecified; D63.8 Anemia in other chronic diseases classified elsewhere; F99 Mental disorder, not otherwise specified; Z99.2 Dependence on renal dialysis; Z79.4 Long term (current) use of insulin; Z91.19 Patient's noncompliance with other medical treatment and regimen
CPT/HCPCS: 83735; 83970; 84100; 84132; 87081; 87340; 93005; 99285; G0480; J0885; J1644; J3490; J7030

== ENCOUNTER 2019-08-30 20:02 | Emergency (ER) | payer MEDICARE, OTHER ==
[~2019-08-30] VITALS: Ht 182.9 cm; Wt 120.6 kg
[~2019-08-30 20:02] MED LIST changes: +ASPI-728 PO; -ASPI81 PO; +BUME1TAB34 PO; +CARV3 PO; +CINA30 PO; -CLON1 PO; +CLON1TAB13 PO; +DOCU-342 PO; -DOCU250C91 PO; +FOLI1CAP2 PO; -FOLI1TAB61 PO; -INSNOV SQ; +INSU100V SQ; -INSU100V12 SQ; -LISI-662 PO; +OLAN10TA3 PO; +PANT40TA25 PO; +PHOSLOC PO; -SEVEC800 PO; -ZIPR80CA2 PO
[2019-08-30] MEDS ORDERED: SEVE0.8P6 PO (20:52)
[2019-08-30] MEDS ORDERED: CHOL100018 PO (20:52)
[2019-08-30] MEDS ORDERED: CARV3 PO (20:52)
[2019-08-30] MEDS ORDERED: INSU100I26 (20:52)
[2019-08-30] MEDS ORDERED: DIVA125T32 PO (20:52)
[2019-08-30] MEDS ORDERED: TRAZ-252 PO (20:52)
[2019-08-30 21:01] LABS: GLUCOSE,POINT OF CARE 197 MG/DL (70-110)
[2019-08-30] MEDS ORDERED: SODIUM CHLORIDE 0.9% 250 ML IV ONE (22:30)
[2019-08-30 23:11] LABS: BASOPHILS % (AUTO) 0.4 % (0.0-2.0); EOSINOPHILS % (AUTO) 0.3 % (1.0-6.0); HEMATOCRIT 23.2 % (41-53); HEMOGLOBIN 7.8 g/dL (13.5-17.5); LYMPHOCYTES # (AUTO) 1.1 K/uL (1.0-4.8); LYMPHOCYTES % (AUTO) 12.2 % (22.0-44.0); MEAN CORPUSCULAR HEMOGLOBIN 35.2 pg (26.0-34.0); MEAN CORPUSCULAR HGB CONC 33.7 G/dL (31.0-37.0); MEAN CORPUSCULAR VOLUME 104 fL (80-100); MONOCYTES # (AUTO) 1.6 K/uL (0.1-1.0); MONOCYTES % (AUTO) 17.5 % (2.0-9.0); NEUTROPHILS # (AUTO) 6.3 K/uL (1.8-7.7); NEUTROPHILS % (AUTO) 69.6 % (40.0-70.0); RED BLOOD CELL COUNT(AUTO) 2.22 MIL/uL (4.50-5.90); RED CELL DISTRIBUTION WIDTH 14.2 % (11.5-14.5)
[2019-08-30 23:21] LABS: CALCIUM, TOTAL 9.4 mg/dL (8.8-10.5); CREATININE 7.89 mg/dL (0.60-1.30); POTASSIUM 4.4 mmol/L (3.5-5.1)
[2019-08-30 23:27] LABS: PLATELET COUNT (AUTO) 32 K/uL (150-450)
[2019-08-30 23:45] LABS: MAGNESIUM 2.2 mg/dL (1.80-2.40)
[2019-08-31 02:14] LABS: APPEARANCE,URINE CLOUDY (CLEAR); BILIRUBIN,URINE NEGATIVE (NEGATIVE); GLUCOSE, URINE (UA) 100 mg/dL (NEGATIVE); KETONES,URINE NEGATIVE (NEGATIVE); LEUKOCYTE ESTERASE ,URINE NEGATIVE (NEGATIVE); NITRATE,URINE NEGATIVE (NEGATIVE); OCCULT BLOOD,URINE MODERATE (NEGATIVE); PH,URINE 8.5 (5.0-8.0); PROTEIN,URINE SEE CONFIRM (NEGATIVE); UROBILINOGEN,URINE 0.2 mg/dL (<=1.0)
[2019-08-31 02:40] LABS: RBC,URINE 26-50 /HPF (0-2); WBC,URINE 0-2 /HPF (0-5)
[2019-08-31 02:41] LABS: BACTERIA,URINE None Seen /HPF (None Seen); SQUAMOUS EPITHELIAL CELL,UR Rare /LPF (None Seen); SULFOSALICYLIC ACID,URINE 1+ (Negative)
[2019-08-31 05:15] VITALS: BP 117/72
== END 2019-08-31 05:24 | disposition home or self-care (01) ==
LOC: EMS 20:05
DX: N18.6 End stage renal disease (principal); E11.22 Type 2 diabetes mellitus with diabetic chronic kidney disease; R25.1 Tremor, unspecified; R79.82 Elevated C-reactive protein (CRP); J98.11 Atelectasis; E78.00 Pure hypercholesterolemia, unspecified; F32.9 Major depressive disorder, single episode, unspecified; F41.9 Anxiety disorder, unspecified; Z99.2 Dependence on renal dialysis
CPT/HCPCS: 36415; 71045; 71250; 80048; 81001; 82550; 82962; 83735; 85025; 86140; 93005 ×2; 99285; J7050

== ENCOUNTER 2019-09-02 09:20 | Inpatient (IN) | payer MEDICARE, OTHER ==
[~2019-09-02] VITALS: Ht 170.2 cm; Wt 115.0 kg
[~2019-09-02 09:20] MED LIST changes: -ASPI-728 PO; -BUME1TAB34 PO; +CHOL100018 PO; -CINA30 PO; -CLON1TAB13 PO; +DIVA125T32 PO; -DOCU-342 PO; +INSU100I26 SQ; -INSU100V SQ; -OLAN10TA3 PO; -PHOSLOC PO; +SEVE0.8P6 PO; +TRAZ-252 PO
[2019-09-02 09:56] LABS: BASOPHILS % (AUTO) 0.5 % (0.0-2.0); EOSINOPHILS % (AUTO) 0.5 % (1.0-6.0); HEMATOCRIT 23.4 % (41-53); HEMOGLOBIN 7.9 g/dL (13.5-17.5); LYMPHOCYTES # (AUTO) 1.1 K/uL (1.0-4.8); LYMPHOCYTES % (AUTO) 15.4 % (22.0-44.0); MEAN CORPUSCULAR HEMOGLOBIN 35.2 pg (26.0-34.0); MEAN CORPUSCULAR HGB CONC 33.6 G/dL (31.0-37.0); MEAN CORPUSCULAR VOLUME 105 fL (80-100); MONOCYTES # (AUTO) 1.1 K/uL (0.1-1.0); MONOCYTES % (AUTO) 15.9 % (2.0-9.0); NEUTROPHILS # (AUTO) 4.9 K/uL (1.8-7.7); NEUTROPHILS % (AUTO) 67.7 % (40.0-70.0); PLATELET COUNT (AUTO) 75 K/uL (150-450); RED BLOOD CELL COUNT(AUTO) 2.23 MIL/uL (4.50-5.90); RED CELL DISTRIBUTION WIDTH 14.1 % (11.5-14.5)
[2019-09-02 10:12] LABS: ANION GAP 12 mmol/L (8-16); CARBON DIOXIDE 28 mmol/L (22-29); CHLORIDE 96 mmol/L (98-107); CREATININE 12.52 mg/dL (0.60-1.30); GLOMERULAR FILTR. RATE CALC 4 mL/min (>60); GLUCOSE,RANDOM 206 mg/dL (70-110); POTASSIUM 4.9 mmol/L (3.5-5.1); SODIUM SERUM 136 mmol/L (136-145); UREA NITROGEN, BLOOD 92 mg/dL (7-18)
[2019-09-02 10:18] LABS: B-TYPE NATRIURETIC PEPTIDE 1320 pg/mL (0-100)
[2019-09-02 10:20] LABS: SALICYLATE 1.3 mg/dL (2.8-20.0)
[2019-09-02 10:21] LABS: TROPONIN I < 0.02 ng/mL (0.00-0.05)
[2019-09-02 10:35] LABS: AMMONIA < 10 umol/L (11-32)
[2019-09-02 10:44] LABS: INFLUENZA TYPE A NEGATIVE FOR TYPE A (NEGATIVE); INFLUENZA TYPE B NEGATIVE FOR TYPE B (NEGATIVE)
[2019-09-02 10:52] LABS: ALANINE AMINOTRANSFERASE 19 U/L (12-78); ALKALINE PHOSPHATASE 92 U/L (46-116); ASPARTATE AMINOTRANSFERASE 27 U/L (15-37); BILIRUBIN,TOTAL 0.7 mg/dL (0.1-1.0); C-REACTIVE PROTEIN QUANT 19.22 mg/dL (0.00-0.30); FERRITIN 1722 ng/mL (26-388); TOTAL PROTEIN, SERUM 6.3 g/dL (6.4-8.2)
[2019-09-02 10:55] LABS: ACETAMINOPHEN < 2 mcg/mL (10-30)
[2019-09-02] MEDS: HYDROXYCHLOROQUINE SULFATE 200 MG TABLET PO SCH ×2 (12:30→22:02)
[2019-09-02] MEDS ORDERED: DEXTROSE 50%-WATER 25 GM/50 ML SYRINGE IVP PRN (12:30)
[2019-09-02] MEDS: ZINC GLUCONATE 50 MG TABLET PO SCH (12:30)
[2019-09-02] MEDS ORDERED: ACETAMINOPHEN 325 MG TABLET PO PRN (12:30)
[2019-09-02] MEDS ORDERED: BISACODYL 10 MG RECTAL RECTAL SUPPOSITORY PR PRN (12:30)
[2019-09-02 12:43] LABS: VALPROIC ACID 95 mcg/mL (50-100)
[2019-09-02 13:12] VITALS: BP 101/57
[2019-09-02] MEDS ORDERED: SODIUM CHLORIDE 0.9% 250 ML IV ONE (15:55)
[2019-09-02] MEDS ORDERED: SODIUM CHLORIDE 0.9% 2,000 ML ONE (16:34)
[2019-09-02] MEDS ORDERED: VANCOMYCIN HCL 1.5 GM in DEXTROSE 5%-WATER 250 ML IV SCH (18:00)
[2019-09-02 20:33] VITALS: BP 103/62
[2019-09-02] MEDS ORDERED: VANCOMYCIN HCL 1 GM/D5% WATER 200 ML IV PRN (22:00)
[2019-09-02] MEDS: DOCUSATE SODIUM 100 MG CAPSULE PO SCH (22:02)
[2019-09-02] MEDS: HEPARIN SODIUM,PORCINE 5,000 UNITS/ML VIAL SQ SCH (22:02)
[2019-09-02 22:03] LABS: GLUCOMETER DEV NAME(LOC) 5N.2; GLUCOSE,POINT OF CARE 143 MG/DL (70-110)
[2019-09-02] MEDS: AZITHROMYCIN 500 MG/NS 250 ML IV SCH (22:03)
[2019-09-02] MEDS: INSULIN LISPRO 100 UNITS/ML SQ PRN (22:04)
[2019-09-02] MEDS: CefTAZidime PENTAHYDRATE 1 GM in DEXTROSE 5%-WATER 50 ML IV SCH (23:46)
[2019-09-03] VITALS (15 sets, daily range): BP systolic 106–161; BP diastolic 58–75
[2019-09-03 06:05] LABS: GLUCOMETER DEV NAME(LOC) 5S.1; GLUCOSE,POINT OF CARE 150 MG/DL (70-110)
[2019-09-03 06:05] LABS: GLUCOMETER DEV NAME(LOC) 5S.1; GLUCOSE,POINT OF CARE 145 MG/DL (70-110)
[2019-09-03] MEDS: INSULIN LISPRO 100 UNITS/ML SQ PRN ×3 (06:15→22:14)
[2019-09-03 06:25] LABS: BASOPHILS % (AUTO) 0.2 % (0.0-2.0); EOSINOPHILS % (AUTO) 0.8 % (1.0-6.0); LYMPHOCYTES # (AUTO) 0.9 K/uL (1.0-4.8); LYMPHOCYTES % (AUTO) 21.5 % (22.0-44.0); MEAN CORPUSCULAR HEMOGLOBIN 35.3 pg (26.0-34.0); MEAN CORPUSCULAR HGB CONC 33.8 G/dL (31.0-37.0); MEAN CORPUSCULAR VOLUME 104 fL (80-100); MONOCYTES # (AUTO) 0.7 K/uL (0.1-1.0); MONOCYTES % (AUTO) 17.3 % (2.0-9.0); NEUTROPHILS # (AUTO) 2.5 K/uL (1.8-7.7); NEUTROPHILS % (AUTO) 60.2 % (40.0-70.0); PLATELET COUNT (AUTO) 54 K/uL (150-450); RED BLOOD CELL COUNT(AUTO) 1.91 MIL/uL (4.50-5.90); RED CELL DISTRIBUTION WIDTH 13.9 % (11.5-14.5)
[2019-09-03 06:44] LABS: CALCIUM, TOTAL 9.2 mg/dL (8.8-10.5); CREATININE 8.83 mg/dL (0.60-1.30); POTASSIUM 4.6 mmol/L (3.5-5.1)
[2019-09-03 07:09] LABS: HEMOGLOBIN 6.8 g/dL (13.5-17.5)
[2019-09-03] MEDS: EPOETIN ALFA 10,000 UNITS/ML VIAL SQ SCH (08:39)
[2019-09-03] MEDS: VITAMIN B COMP/VIT C/FOLIC ACID CAPSULE PO SCH (08:39)
[2019-09-03] MEDS: ZINC GLUCONATE 50 MG TABLET PO SCH (08:40)
[2019-09-03] MEDS: DOCUSATE SODIUM 100 MG CAPSULE PO SCH ×2 (08:40→22:13)
[2019-09-03] MEDS: FAMOTIDINE 20 MG TABLET PO SCH (08:40)
[2019-09-03] MEDS: HYDROXYCHLOROQUINE SULFATE 200 MG TABLET PO SCH (08:40)
[2019-09-03] MEDS: HEPARIN SODIUM,PORCINE 5,000 UNITS/ML VIAL SQ SCH ×2 (08:41→21:00)
[2019-09-03] MEDS ORDERED: SODIUM CHLORIDE 0.9% 250 ML IV ONE (10:36)
[2019-09-03 11:55] LABS: % IRON SATURATION 27.6 % (30-44)
[2019-09-03] MEDS ORDERED: ALBUMIN HUMAN 25%-12.5GM/50ML IV BOTTLE IV ONE (17:30)
[2019-09-03] MEDS ORDERED: MANNITOL 25%-12.5 GM/50 ML VIAL IVP ONE (17:30)
[2019-09-03 17:51] LABS: GLUCOMETER DEV NAME(LOC) 5S.1; GLUCOSE,POINT OF CARE 185 MG/DL (70-110)
[2019-09-03 17:51] LABS: GLUCOMETER DEV NAME(LOC) 5S.1; GLUCOSE,POINT OF CARE 164 MG/DL (70-110)
[2019-09-03] MEDS ORDERED: HYDROXYCHLOROQUINE SULFATE 200 MG TABLET PO SCH (21:00)
[2019-09-03] MEDS: AZITHROMYCIN 500 MG/NS 250 ML IV SCH (22:13)
[2019-09-04] MEDS: CefTAZidime PENTAHYDRATE 1 GM in DEXTROSE 5%-WATER 50 ML IV SCH ×2 (01:08→23:10)
[2019-09-04 03:46] VITALS: BP 137/66
[2019-09-04 04:23] LABS: GLUCOMETER DEV NAME(LOC) 5S.1; GLUCOSE,POINT OF CARE 147 MG/DL (70-110)
[2019-09-04 06:23] LABS: HEMATOCRIT 21.9 % (41-53); HEMOGLOBIN 7.9 g/dL (13.5-17.5); MEAN CORPUSCULAR HEMOGLOBIN 36.4 pg (26.0-34.0); MEAN CORPUSCULAR HGB CONC 36.1 G/dL (31.0-37.0); MEAN CORPUSCULAR VOLUME 101 fL (80-100); PLATELET COUNT (AUTO) 59 K/uL (150-450); RED BLOOD CELL COUNT(AUTO) 2.17 MIL/uL (4.50-5.90); RED CELL DISTRIBUTION WIDTH 15.6 % (11.5-14.5)
[2019-09-04 06:51] LABS: CALCIUM, TOTAL 9.4 mg/dL (8.8-10.5); CREATININE 10.45 mg/dL (0.60-1.30); POTASSIUM 4.8 mmol/L (3.5-5.1); VANCOMYCIN,RANDOM 19.3 mcg/mL (25.0-50.0)
[2019-09-04 07:10] LABS: BAND NEUTROPHILS % (MANUAL) 7 % (0-5); EOSINOPHILS % (MANUAL) 1 % (1-6); LYMPHOCYTES % (MANUAL) 27 % (22-44); MONOCYTES % (MANUAL) 14 % (2-9); SEGMENTED NEUTROPHILS % 51 % (40-70)
[2019-09-04 07:13] VITALS: BP 136/77
[2019-09-04] MEDS ORDERED: BARIUM SULFATE 0.1% SUSPENSION 450 ML BOTTLE ONE (08:24)
[2019-09-04] MEDS: HEPARIN SODIUM,PORCINE 5,000 UNITS/ML VIAL SQ SCH ×2 (09:00→23:10)
[2019-09-04] MEDS: VITAMIN B COMP/VIT C/FOLIC ACID CAPSULE PO SCH (09:00)
[2019-09-04] MEDS: FAMOTIDINE 20 MG TABLET PO SCH (09:00)
[2019-09-04] MEDS: DOCUSATE SODIUM 100 MG CAPSULE PO SCH ×2 (09:00→23:10)
[2019-09-04] MEDS: ZINC GLUCONATE 50 MG TABLET PO SCH (09:00)
[2019-09-04] MEDS ORDERED: IOVERSOL 350 MG/ML 150 ML VIAL ONE (09:25)
[2019-09-04] MEDS ORDERED: SODIUM CHLORIDE 0.9% 100 ML ONE (09:25)
[2019-09-04] MEDS ORDERED: SODIUM CHLORIDE 0.9% 2,000 ML ONE (09:53)
[2019-09-04 11:28] VITALS: BP 149/73
[2019-09-04] MEDS ORDERED: ONDANSETRON HCL 4 MG/2 ML VIAL IVP PRN (12:00)
[2019-09-04 15:16] VITALS: BP 123/59
[2019-09-04 20:48] LABS: GLUCOMETER DEV NAME(LOC) 5S.1; GLUCOSE,POINT OF CARE 130 MG/DL (70-110)
[2019-09-04 20:48] LABS: GLUCOMETER DEV NAME(LOC) 5S.1; GLUCOSE,POINT OF CARE 121 MG/DL (70-110)
[2019-09-04 20:48] LABS: GLUCOMETER DEV NAME(LOC) 5S.1; GLUCOSE,POINT OF CARE 119 MG/DL (70-110)
[2019-09-04 20:52] VITALS: BP 110/64
[2019-09-04 23:10] LABS: GLUCOMETER DEV NAME(LOC) 5S.1; GLUCOSE,POINT OF CARE 123 MG/DL (70-110)
[2019-09-05] VITALS (8 sets, daily range): BP systolic 93–115; BP diastolic 54–72
[2019-09-05] MEDS ORDERED: VANCOMYCIN HCL 1 GM/D5% WATER 200 ML IV ONE (06:00)
[2019-09-05 06:58] LABS: GLUCOMETER DEV NAME(LOC) 5S.1; GLUCOSE,POINT OF CARE 162 MG/DL (70-110)
[2019-09-05 07:11] LABS: HEMATOCRIT 21.6 % (41-53); HEMOGLOBIN 7.3 g/dL (13.5-17.5); MEAN CORPUSCULAR HEMOGLOBIN 34.3 pg (26.0-34.0); MEAN CORPUSCULAR HGB CONC 33.6 G/dL (31.0-37.0); MEAN CORPUSCULAR VOLUME 102 fL (80-100); PLATELET COUNT (AUTO) 64 K/uL (150-450); RED BLOOD CELL COUNT(AUTO) 2.12 MIL/uL (4.50-5.90); RED CELL DISTRIBUTION WIDTH 14.9 % (11.5-14.5)
[2019-09-05 07:28] LABS: BAND NEUTROPHILS % (MANUAL) 6 % (0-5); EOSINOPHILS % (MANUAL) 1 % (1-6); LYMPHOCYTES % (MANUAL) 26 % (22-44); MONOCYTES % (MANUAL) 16 % (2-9); SEGMENTED NEUTROPHILS % 51 % (40-70)
[2019-09-05 07:53] LABS: CALCIUM, TOTAL 9.1 mg/dL (8.8-10.5); CREATININE 8.41 mg/dL (0.60-1.30); POTASSIUM 4.5 mmol/L (3.5-5.1)
[2019-09-05] MEDS: DOCUSATE SODIUM 100 MG CAPSULE PO SCH ×2 (08:31→20:17)
[2019-09-05] MEDS: HEPARIN SODIUM,PORCINE 5,000 UNITS/ML VIAL SQ SCH ×2 (08:31→20:17)
[2019-09-05] MEDS: VITAMIN B COMP/VIT C/FOLIC ACID CAPSULE PO SCH (08:41)
[2019-09-05] MEDS: FAMOTIDINE 20 MG TABLET PO SCH (08:41)
[2019-09-05] MEDS: EPOETIN ALFA 10,000 UNITS/ML VIAL SQ SCH (08:41)
[2019-09-05] MEDS: INSULIN LISPRO 100 UNITS/ML SQ PRN (12:07)
[2019-09-05] MEDS: SEVELAMER CARBONATE 800 MG TABLET PO SCH ×2 (12:07→18:16)
[2019-09-05 21:10] LABS: GLUCOMETER DEV NAME(LOC) 5S.1; GLUCOSE,POINT OF CARE 136 MG/DL (70-110)
[2019-09-05 21:10] LABS: GLUCOMETER DEV NAME(LOC) 5S.1; GLUCOSE,POINT OF CARE 170 MG/DL (70-110)
[2019-09-05 21:10] LABS: GLUCOMETER DEV NAME(LOC) 5S.1; GLUCOSE,POINT OF CARE 119 MG/DL (70-110)
[2019-09-05] MEDS ORDERED: SODIUM CHLORIDE 0.9% 250 ML IV ONE (22:54)
[2019-09-05] MEDS: CefTAZidime PENTAHYDRATE 1 GM in DEXTROSE 5%-WATER 50 ML IV SCH (23:00)
[2019-09-06] VITALS (7 sets, daily range): BP systolic 115–131; BP diastolic 67–86
[2019-09-06 06:44] LABS: HEMATOCRIT 21.3 % (41-53); HEMOGLOBIN 7.1 g/dL (13.5-17.5); MEAN CORPUSCULAR HGB CONC 33.3 G/dL (31.0-37.0); MEAN CORPUSCULAR VOLUME 102 fL (80-100); PLATELET COUNT (AUTO) 75 K/uL (150-450); RED BLOOD CELL COUNT(AUTO) 2.08 MIL/uL (4.50-5.90); RED CELL DISTRIBUTION WIDTH 14.7 % (11.5-14.5)
[2019-09-06 06:47] LABS: CALCIUM, TOTAL 9.5 mg/dL (8.8-10.5); CREATININE 10.28 mg/dL (0.60-1.30); POTASSIUM 4.4 mmol/L (3.5-5.1)
[2019-09-06] MEDS: HEPARIN SODIUM,PORCINE 5,000 UNITS/ML VIAL SQ SCH ×2 (07:44→20:19)
[2019-09-06] MEDS: VITAMIN B COMP/VIT C/FOLIC ACID CAPSULE PO SCH (07:49)
[2019-09-06] MEDS: SEVELAMER CARBONATE 800 MG TABLET PO SCH ×3 (07:49→17:56)
[2019-09-06] MEDS: DOCUSATE SODIUM 100 MG CAPSULE PO SCH ×2 (07:49→20:18)
[2019-09-06] MEDS: FAMOTIDINE 20 MG TABLET PO SCH (07:49)
[2019-09-06 07:57] LABS: BAND NEUTROPHILS % (MANUAL) 5 % (0-5); LYMPHOCYTES % (MANUAL) 46 % (22-44); MONOCYTES % (MANUAL) 4 % (2-9); SEGMENTED NEUTROPHILS % 45 % (40-70)
[2019-09-06] MEDS ORDERED: SODIUM CHLORIDE 0.9% 2,000 ML ONE (08:40)
[2019-09-06] MEDS ORDERED: SODIUM CHLORIDE 0.9% 250 ML IV ONE (10:26)
[2019-09-06] MEDS ORDERED: SEVE800T17 PO (13:07)
[2019-09-06] MEDS ORDERED: FOLI0.8T2 PO (13:07)
[2019-09-06 13:15] LABS: APPEARANCE,URINE CLEAR (CLEAR); BILIRUBIN,URINE NEGATIVE (NEGATIVE); GLUCOSE, URINE (UA) 250 mg/dL (NEGATIVE); KETONES,URINE NEGATIVE (NEGATIVE); LEUKOCYTE ESTERASE ,URINE NEGATIVE (NEGATIVE); NITRATE,URINE NEGATIVE (NEGATIVE); OCCULT BLOOD,URINE NEGATIVE (NEGATIVE); PH,URINE 8.5 (5.0-8.0); PROTEIN,URINE POS 1+ (NEGATIVE); UROBILINOGEN,URINE 0.2 mg/dL (<=1.0)
[2019-09-06 13:39] LABS: BACTERIA,URINE None Seen /HPF (None Seen); RBC,URINE None Seen /HPF (0-2); SQUAMOUS EPITHELIAL CELL,UR Few /LPF (None Seen); WBC,URINE 0-2 /HPF (0-5)
[2019-09-06 13:55] LABS: COCAINE SCREEN,URINE NEGATIVE (NEGATIVE)
[2019-09-06 14:08] LABS: AMPHET/METH SCREEN,URINE NEGATIVE (NEGATIVE); BARBITURATE SCREEN, URINE NEGATIVE (NEGATIVE); BENZODIAZEPINES SCREEN,URINE NEGATIVE (NEGATIVE); CANNABINOID SCREEN,URINE NEGATIVE (NEGATIVE); METHADONE SCREEN, URINE NEGATIVE (NEGATIVE); OPIATE SCREEN,URINE NEGATIVE (NEGATIVE); PHENCYCLIDINE SCREEN,URINE NEGATIVE (NEGATIVE)
[2019-09-06] MEDS: INSULIN LISPRO 100 UNITS/ML SQ PRN (17:58)
[2019-09-06 18:14] LABS: GLUCOMETER DEV NAME(LOC) 5S.1; GLUCOSE,POINT OF CARE 146 MG/DL (70-110)
[2019-09-06 18:14] LABS: GLUCOMETER DEV NAME(LOC) 5S.1; GLUCOSE,POINT OF CARE 159 MG/DL (70-110)
[2019-09-06 18:14] LABS: GLUCOMETER DEV NAME(LOC) 5S.1; GLUCOSE,POINT OF CARE 121 MG/DL (70-110)
[2019-09-06 22:03] LABS: GLUCOMETER DEV NAME(LOC) 5S.1; GLUCOSE,POINT OF CARE 133 MG/DL (70-110)
[2019-09-06] MEDS: CefTAZidime PENTAHYDRATE 1 GM in DEXTROSE 5%-WATER 50 ML IV SCH (22:48)
[2019-09-07 00:14] VITALS: BP 122/66
[2019-09-07 04:28] VITALS: BP 105/72
[2019-09-07 06:55] LABS: GLUCOMETER DEV NAME(LOC) 5S.2A; GLUCOSE,POINT OF CARE 118 MG/DL (70-110)
[2019-09-07] MEDS: HEPARIN SODIUM,PORCINE 5,000 UNITS/ML VIAL SQ SCH ×2 (07:59→20:44)
[2019-09-07] MEDS: VITAMIN B COMP/VIT C/FOLIC ACID CAPSULE PO SCH (08:15)
[2019-09-07] MEDS: SEVELAMER CARBONATE 800 MG TABLET PO SCH ×3 (08:15→17:49)
[2019-09-07] MEDS: DOCUSATE SODIUM 100 MG CAPSULE PO SCH ×4 (08:15→21:00)
[2019-09-07] MEDS: FAMOTIDINE 20 MG TABLET PO SCH (08:15)
[2019-09-07 11:14] LABS: HEMATOCRIT 24.5 % (41-53); HEMOGLOBIN 8.2 g/dL (13.5-17.5); MEAN CORPUSCULAR HEMOGLOBIN 33.5 pg (26.0-34.0); MEAN CORPUSCULAR HGB CONC 33.6 G/dL (31.0-37.0); MEAN CORPUSCULAR VOLUME 100 fL (80-100); PLATELET COUNT (AUTO) 102 K/uL (150-450); RED BLOOD CELL COUNT(AUTO) 2.46 MIL/uL (4.50-5.90); RED CELL DISTRIBUTION WIDTH 16.2 % (11.5-14.5)
[2019-09-07 11:40] LABS: BAND NEUTROPHILS % (MANUAL) 4 % (0-5); LYMPHOCYTES % (MANUAL) 55 % (22-44); MONOCYTES % (MANUAL) 5 % (2-9); SEGMENTED NEUTROPHILS % 36 % (40-70)
[2019-09-07 11:59] VITALS: BP 131/68
[2019-09-07 12:45] LABS: GLUCOMETER DEV NAME(LOC) 5S.2A; GLUCOSE,POINT OF CARE 123 MG/DL (70-110)
[2019-09-07] MEDS ORDERED: VANCOMYCIN HCL 500 MG in DEXTROSE 5%-WATER 100 ML IV ONE (13:00)
[2019-09-07 15:10] VITALS: BP 118/73
[2019-09-07 20:05] VITALS: BP 116/73
[2019-09-07] MEDS: CefTAZidime PENTAHYDRATE 1 GM in DEXTROSE 5%-WATER 50 ML IV SCH (22:33)
[2019-09-07 22:58] LABS: GLUCOMETER DEV NAME(LOC) 5S.1; GLUCOSE,POINT OF CARE 117 MG/DL (70-110)
[2019-09-08 00:15] VITALS: BP 124/76
[2019-09-08 04:27] VITALS: BP 114/78
[2019-09-08 08:00] VITALS: BP 126/80
[2019-09-08] MEDS: SEVELAMER CARBONATE 800 MG TABLET PO SCH ×2 (08:00→12:33)
[2019-09-08] MEDS: VITAMIN B COMP/VIT C/FOLIC ACID CAPSULE PO SCH (08:33)
[2019-09-08] MEDS: FAMOTIDINE 20 MG TABLET PO SCH (08:33)
[2019-09-08] MEDS: HEPARIN SODIUM,PORCINE 5,000 UNITS/ML VIAL SQ SCH (08:34)
[2019-09-08] MEDS: DOCUSATE SODIUM 100 MG CAPSULE PO SCH (09:00)
[2019-09-08] MEDS ORDERED: EPOETIN ALFA 10,000 UNITS/ML 2 ML VIAL SQ SCH (09:00)
[2019-09-09] MEDS ORDERED: DOXERCALCIFEROL 4 MCG/2 ML VIAL IVP SCH (09:00)
[2019-09-10 05:51] LABS: GLUCOMETER DEV NAME(LOC) 5S.2A; GLUCOSE,POINT OF CARE 125 MG/DL (70-110)
[2019-09-10 05:51] LABS: GLUCOMETER DEV NAME(LOC) 5S.2A; GLUCOSE,POINT OF CARE 168 MG/DL (70-110)
[2019-09-10 05:52] LABS: GLUCOMETER DEV NAME(LOC) 5S.2A; GLUCOSE,POINT OF CARE 134 MG/DL (70-110)
== END 2019-09-08 16:10 | disposition home or self-care (01) | DRG 70 ==
LOC: EMS 09:23 → 5N 12:32 → 5S 09-03 11:40
PROVIDERS: ADMIT Internal Medicine; ATTEND Internal Medicine
PROC: 5A1D70Z Performance of Urinary Filtration, Intermittent, Less than 6 Hours Per Day (ICD-10-PCS; 2019-09-02)
PROC: 30233N1 Transfusion of Nonautologous Red Blood Cells into Peripheral Vein, Percutaneous Approach (ICD-10-PCS; principal; 2019-09-03)
PROC: 5A1D70Z Performance of Urinary Filtration, Intermittent, Less than 6 Hours Per Day (ICD-10-PCS; 2019-09-04)
PROC: 5A1D70Z Performance of Urinary Filtration, Intermittent, Less than 6 Hours Per Day (ICD-10-PCS; 2019-09-06)
DX: G93.41 Metabolic encephalopathy (principal); K85.90 Acute pancreatitis without necrosis or infection, unspecified; N18.6 End stage renal disease; N17.9 Acute kidney failure, unspecified; I12.0 Hypertensive chronic kidney disease with stage 5 chronic kidney disease or end stage renal disease; I95.9 Hypotension, unspecified; E87.70 Fluid overload, unspecified; E11.22 Type 2 diabetes mellitus with diabetic chronic kidney disease; D63.1 Anemia in chronic kidney disease; F25.0 Schizoaffective disorder, bipolar type; E78.00 Pure hypercholesterolemia, unspecified; M10.9 Gout, unspecified; Z79.4 Long term (current) use of insulin; Z86.14 Personal history of Methicillin resistant Staphylococcus aureus infection; Z95.2 Presence of prosthetic heart valve; Z99.2 Dependence on renal dialysis; Z86.718 Personal history of other venous thrombosis and embolism; Z03.818 Encounter for observation for suspected exposure to other biological agents ruled out
CPT/HCPCS: 70450; 70551; 71250; 74177; 82270; 82271; 82607; 82728; 83540; 83550; 83605; 83735; 83970; 85014; 86140; 86850; 86900; 86901; 86920; 86923; 87040; 87081; 87340; 87350; 87635; 87804; 93005; 97116; 97162; 97166; 97530; 97535; G0480; G0481; J0456; J0713; J0885; J1270; J1644; J2150; J2405; J3370; J7030; J7050; J7060; P9016; P9047

== ENCOUNTER 2020-03-15 22:10 | Emergency (ER) | payer MEDICARE, OTHER ==
[~2020-03-15] VITALS: Ht 167.6 cm; Wt 108.2 kg
[~2020-03-15 22:10] MED LIST changes: -CARV3 PO; +DIVA-80 PO; -DIVA125T32 PO; -DIVA500T52 PO; +FOLI0.8T2 PO; -FOLI1CAP2 PO; +PANT-31 PO; -PANT40TA25 PO; -SEVE0.8P6 PO; +SEVE800T17 PO
[2020-03-15 22:14] VITALS: BP 160/91
[2020-03-15] MEDS ORDERED: OMEG-135 PO (22:26)
[2020-03-15] MEDS ORDERED: DIVA-112 PO (22:26)
[2020-03-15] MEDS ORDERED: DOCU-275 PO (22:26)
[2020-03-15] MEDS ORDERED: OLAN10TA3 PO (22:26)
[2020-03-15] MEDS ORDERED: LORA-999 PO (22:26)
[2020-03-15] MEDS ORDERED: SIMV-261 PO (22:26)
== END 2020-03-15 23:09 | disposition left against medical advice (07) ==
LOC: EMS 22:10
DX: F41.9 Anxiety disorder, unspecified (principal); Z53.21 Procedure and treatment not carried out due to patient leaving prior to being seen by health care provider

== ENCOUNTER 2021-09-04 01:13 | Inpatient (IN) | payer MEDICARE, OTHER ==
[~2021-09-04] VITALS: Ht 177.8 cm; Wt 101.8 kg
[2021-09-04] VITALS (11 sets, daily range): BP systolic 103–148; BP diastolic 66–98
[~2021-09-04 01:13] MED LIST changes: -CHOL100018 PO; +CHOL25TA4 PO; +DIVA-112 PO; -DIVA-80 PO; +DOCU-385 PO; +LORA-999 PO; +OLAN10TA74 PO; +OMEG-108 PO
[2021-09-04 01:39] LABS: BASOPHILS % (AUTO) 0.7 % (0.0-2.0); EOSINOPHILS % (AUTO) 0.7 % (1.0-6.0); HEMATOCRIT 31.7 % (41-53); LYMPHOCYTES # (AUTO) 2.4 K/uL (1.0-4.8); LYMPHOCYTES % (AUTO) 28.7 % (22.0-44.0); MEAN CORPUSCULAR HEMOGLOBIN 32.8 pg (26.0-34.0); MEAN CORPUSCULAR HGB CONC 34.5 G/dL (31.0-37.0); MEAN CORPUSCULAR VOLUME 95 fL (80-100); MONOCYTES # (AUTO) 0.6 K/uL (0.1-1.0); MONOCYTES % (AUTO) 7.3 % (2.0-9.0); NEUTROPHILS # (AUTO) 5.1 K/uL (1.8-7.7); NEUTROPHILS % (AUTO) 62.6 % (40.0-70.0); PLATELET COUNT (AUTO) 188 K/uL (150-450); RED BLOOD CELL COUNT(AUTO) 3.34 MIL/uL (4.50-5.90); RED CELL DISTRIBUTION WIDTH 14.5 % (11.5-14.5)
[2021-09-04] MEDS ORDERED: ATOR20TA86 PO (01:45)
[2021-09-04] MEDS ORDERED: FERR325T27 PO (01:45)
[2021-09-04] MEDS ORDERED: OLAN10TA74 PO (01:45)
[2021-09-04] MEDS ORDERED: DULA0.75 SQ (01:45)
[2021-09-04] MEDS ORDERED: FOLI-130 PO (01:45)
[2021-09-04] MEDS ORDERED: TRAZ-257 PO (01:45)
[2021-09-04] MEDS ORDERED: SEVE800T17 PO (01:45)
[2021-09-04] MEDS ORDERED: ARIP10TA38 PO (01:45)
[2021-09-04] MEDS ORDERED: DIVA125C20 PO (01:45)
[2021-09-04] MEDS ORDERED: LEVO75 PO (01:45)
[2021-09-04] MEDS ORDERED: PANT-31 PO (01:45)
[2021-09-04 01:53] LABS: ALANINE AMINOTRANSFERASE 35 U/L (12-78); ALBUMIN 3.5 g/dL (3.4-5.0); ALKALINE PHOSPHATASE 257 U/L (46-116); ANION GAP 11 mmol/L (8-16); ASPARTATE AMINOTRANSFERASE 16 U/L (15-37); BILIRUBIN,TOTAL 0.6 mg/dL (0.1-1.0); CALCIUM, TOTAL 9.3 mg/dL (8.8-10.5); CARBON DIOXIDE 31 mmol/L (22-29); CHLORIDE 98 mmol/L (98-107); CREATININE 11.36 mg/dL (0.60-1.30); GLOMERULAR FILTR. RATE CALC 5 mL/min (>60); GLUCOSE,RANDOM 190 mg/dL (70-110); SODIUM SERUM 140 mmol/L (136-145); TOTAL PROTEIN, SERUM 7.6 g/dL (6.4-8.2); UREA NITROGEN, BLOOD 58 mg/dL (7-18)
[2021-09-04 01:56] LABS: POTASSIUM 6.2 mmol/L (3.5-5.1)
[2021-09-04] MEDS ORDERED: SODIUM POLYSTYRENE SULFONATE 15 GM/60 ML SUSPENSION BOTTLE PO ONE (02:00)
[2021-09-04] MEDS ORDERED: DEXTROSE 50%-WATER 25 GM/50 ML SYRINGE IVP ONE (02:30)
[2021-09-04] MEDS ORDERED: INSULIN REGULAR, HUMAN 100 UNITS/ML IVP ONE (02:30)
[2021-09-04] MEDS ORDERED: HALOPERIDOL 5 MG TABLET PO ONE (02:45)
[2021-09-04 03:01] LABS: GLUCOMETER DEV NAME(LOC) ERT.5; GLUCOSE,POINT OF CARE 144 MG/DL (70-110)
[2021-09-04 03:41] LABS: GLUCOMETER DEV NAME(LOC) ERT.5; GLUCOSE,POINT OF CARE 324 MG/DL (70-110)
[2021-09-04 03:53] LABS: COVID AG,FIA SOURCE NASAL SWAB
[2021-09-04 04:52] LABS: GLUCOMETER DEV NAME(LOC) ERT.5; GLUCOSE,POINT OF CARE 194 MG/DL (70-110)
[2021-09-04] MEDS ORDERED: DEXTROSE 50%-WATER 25 GM/50 ML SYRINGE IVP PRN (08:30)
[2021-09-04] MEDS ORDERED: DIVALPROEX SODIUM 250 MG DR TABLET PO SCH (09:00)
[2021-09-04 09:34] LABS: VALPROIC ACID < 3 mcg/mL (50-100)
[2021-09-04] MEDS: HEPARIN SODIUM,PORCINE 5,000 UNITS/ML VIAL SQ SCH ×2 (09:43→21:36)
[2021-09-04] MEDS ORDERED: DIVA-112 PO (11:03)
[2021-09-04] MEDS ORDERED: SODIUM CHLORIDE 0.9% 2,000 ML ONE (12:29)
[2021-09-04 14:31] LABS: GLUCOMETER DEV NAME(LOC) 5S.2B; GLUCOSE,POINT OF CARE 122 MG/DL (70-110)
[2021-09-04] MEDS: DIVALPROEX SODIUM 500 MG DR TABLET PO SCH ×2 (16:44→21:36)
[2021-09-04 17:56] LABS: GLUCOMETER DEV NAME(LOC) 5S.2B; GLUCOSE,POINT OF CARE 137 MG/DL (70-110)
[2021-09-04 20:11] LABS: GLUCOMETER DEV NAME(LOC) 5S.1B; GLUCOSE,POINT OF CARE 179 MG/DL (70-110)
[2021-09-04] MEDS: OLANZapine 10 MG TABLET PO SCH (21:36)
[2021-09-04] MEDS: INSULIN LISPRO 100 UNITS/ML SQ PRN (21:39)
[2021-09-05] VITALS (7 sets, daily range): BP systolic 98–132; BP diastolic 63–78
[2021-09-05] MEDS: HEPARIN SODIUM,PORCINE 5,000 UNITS/ML VIAL SQ SCH ×2 (09:00→20:08)
[2021-09-05] MEDS: DIVALPROEX SODIUM 500 MG DR TABLET PO SCH ×3 (11:36→20:08)
[2021-09-05] MEDS: SEVELAMER CARBONATE 800 MG TABLET PO SCH ×2 (12:32→18:17)
[2021-09-05 17:36] LABS: GLUCOMETER DEV NAME(LOC) 5N.3; GLUCOSE,POINT OF CARE 130 MG/DL (70-110)
[2021-09-05] MEDS: INSULIN LISPRO 100 UNITS/ML SQ PRN (18:19)
[2021-09-05 20:02] LABS: GLUCOMETER DEV NAME(LOC) 5S.1B; GLUCOSE,POINT OF CARE 167 MG/DL (70-110)
[2021-09-05] MEDS: OLANZapine 10 MG TABLET PO SCH (20:08)
[2021-09-05 20:16] LABS: GLUCOMETER DEV NAME(LOC) 5N.1C; GLUCOSE,POINT OF CARE 142 MG/DL (70-110)
[2021-09-06] VITALS (11 sets, daily range): BP systolic 88–141; BP diastolic 58–95
[2021-09-06 06:21] LABS: GLUCOMETER DEV NAME(LOC) 5N.1C; GLUCOSE,POINT OF CARE 107 MG/DL (70-110)
[2021-09-06 06:32] LABS: BASOPHILS % (AUTO) 0.4 % (0.0-2.0); EOSINOPHILS % (AUTO) 1.1 % (1.0-6.0); HEMATOCRIT 31.2 % (41-53); HEMOGLOBIN 10.9 g/dL (13.5-17.5); LYMPHOCYTES # (AUTO) 2.6 K/uL (1.0-4.8); LYMPHOCYTES % (AUTO) 31.5 % (22.0-44.0); MEAN CORPUSCULAR VOLUME 94 fL (80-100); MONOCYTES # (AUTO) 0.6 K/uL (0.1-1.0); MONOCYTES % (AUTO) 7.2 % (2.0-9.0); NEUTROPHILS # (AUTO) 4.9 K/uL (1.8-7.7); NEUTROPHILS % (AUTO) 59.8 % (40.0-70.0); PLATELET COUNT (AUTO) 196 K/uL (150-450); RED BLOOD CELL COUNT(AUTO) 3.31 MIL/uL (4.50-5.90); RED CELL DISTRIBUTION WIDTH 14.2 % (11.5-14.5)
[2021-09-06 06:47] LABS: CALCIUM, TOTAL 9.6 mg/dL (8.8-10.5); CREATININE 10.55 mg/dL (0.60-1.30); POTASSIUM 5.6 mmol/L (3.5-5.1)
[2021-09-06] MEDS: DIVALPROEX SODIUM 500 MG DR TABLET PO SCH ×2 (07:55→15:20)
[2021-09-06] MEDS: HEPARIN SODIUM,PORCINE 5,000 UNITS/ML VIAL SQ SCH (07:55)
[2021-09-06] MEDS: SEVELAMER CARBONATE 800 MG TABLET PO SCH ×3 (07:55→15:20)
[2021-09-06] MEDS ORDERED: SODIUM CHLORIDE 0.9% 2,000 ML ONE (09:48)
[2021-09-06] MEDS: INSULIN LISPRO 100 UNITS/ML SQ PRN ×2 (11:39→18:03)
[2021-09-06 20:51] LABS: GLUCOMETER DEV NAME(LOC) 5N.1C; GLUCOSE,POINT OF CARE 169 MG/DL (70-110)
[2021-09-06 20:51] LABS: GLUCOMETER DEV NAME(LOC) 5N.1C; GLUCOSE,POINT OF CARE 176 MG/DL (70-110)
== END 2021-09-06 19:40 | disposition home health service (06) | DRG 640 ==
LOC: EMS 01:16 → 5N 11:17 → 5S 18:05
PROVIDERS: ADMIT Internal Medicine; ATTEND Internal Medicine
PROC: 5A1D70Z Performance of Urinary Filtration, Intermittent, Less than 6 Hours Per Day (ICD-10-PCS; principal; 2021-09-04)
DX: E87.5 Hyperkalemia (principal); N18.6 End stage renal disease; I12.0 Hypertensive chronic kidney disease with stage 5 chronic kidney disease or end stage renal disease; N25.81 Secondary hyperparathyroidism of renal origin; F31.5 Bipolar disorder, current episode depressed, severe, with psychotic features; Z20.822 Contact with and (suspected) exposure to COVID-19; D63.1 Anemia in chronic kidney disease; E03.9 Hypothyroidism, unspecified; E83.39 Other disorders of phosphorus metabolism; E78.00 Pure hypercholesterolemia, unspecified; E66.01 Morbid (severe) obesity due to excess calories; F79 Unspecified intellectual disabilities; G40.909 Epilepsy, unspecified, not intractable, without status epilepticus; M10.9 Gout, unspecified; E11.22 Type 2 diabetes mellitus with diabetic chronic kidney disease; Z82.49 Family history of ischemic heart disease and other diseases of the circulatory system; Z91.15 Patient's noncompliance with renal dialysis; Z99.2 Dependence on renal dialysis; Z86.14 Personal history of Methicillin resistant Staphylococcus aureus infection; Z79.899 Other long term (current) drug therapy; Z86.718 Personal history of other venous thrombosis and embolism; Z87.440 Personal history of urinary (tract) infections; Z79.4 Long term (current) use of insulin; Z68.32 Body mass index [BMI] 32.0-32.9, adult
CPT/HCPCS: 80048; 80053; 80164; 82962; 84132; 84443; 85025; 87081; 87340; 90935; 93005; 99285; G0480; J1644; J1815; J7030

== ENCOUNTER 2022-08-06 11:47 | Emergency (ER) | payer MEDICARE, OTHER ==
[~2022-08-06] VITALS: Ht 177.8 cm; Wt 83.0 kg
[~2022-08-06 11:47] MED LIST changes: +ARIP10TA38 PO; +ATOR20TA86 PO; -CHOL25TA4 PO; +DULA0.75 SQ; -INSU100I26 SQ; +LEVO75 PO; -LORA-999 PO; -OMEG-108 PO; +OMEG-135 PO; -SIMV-261 PO; -TRAZ-252 PO; +TRAZ-257 PO
[2022-08-06 12:52] LABS: BASOPHILS % (AUTO) 0.6 % (0.0-2.0); EOSINOPHILS % (AUTO) 0.9 % (1.0-6.0); HEMATOCRIT 34.4 % (41-53); HEMOGLOBIN 11.4 g/dL (13.5-17.5); LYMPHOCYTES # (AUTO) 1.2 K/uL (1.0-4.8); LYMPHOCYTES % (AUTO) 23.2 % (22.0-44.0); MEAN CORPUSCULAR HEMOGLOBIN 32.2 pg (26.0-34.0); MEAN CORPUSCULAR HGB CONC 33.1 G/dL (31.0-37.0); MEAN CORPUSCULAR VOLUME 97 fL (80-100); MONOCYTES # (AUTO) 0.5 K/uL (0.1-1.0); MONOCYTES % (AUTO) 9.7 % (2.0-9.0); NEUTROPHILS # (AUTO) 3.4 K/uL (1.8-7.7); NEUTROPHILS % (AUTO) 65.6 % (40.0-70.0); PLATELET COUNT (AUTO) 117 K/uL (150-450); RED BLOOD CELL COUNT(AUTO) 3.54 MIL/uL (4.50-5.90); RED CELL DISTRIBUTION WIDTH 14.4 % (11.5-14.5)
[2022-08-06 12:57] LABS: CALCIUM, TOTAL 7.8 mg/dL (8.8-10.5); CREATININE 5.61 mg/dL (0.60-1.30); POTASSIUM 5.4 mmol/L (3.5-5.1)
[2022-08-06 13:02] LABS: ALBUMIN 3.6 g/dL (3.4-5.0); BILIRUBIN,TOTAL 0.5 mg/dL (0.1-1.0)
[2022-08-06 13:41] VITALS: BP 130/71
[2022-08-06] MEDS ORDERED: SODIUM POLYSTYRENE SULFONATE 15 GM/60 ML SUSPENSION BOTTLE PO ONE (13:45)
== END 2022-08-06 16:56 | disposition home or self-care (01) ==
LOC: EMS 11:50
DX: E87.5 Hyperkalemia (principal); L98.8 Other specified disorders of the skin and subcutaneous tissue; F31.9 Bipolar disorder, unspecified; E11.9 Type 2 diabetes mellitus without complications; E78.00 Pure hypercholesterolemia, unspecified
CPT/HCPCS: 80053; 85025; 93005; 99284

== ENCOUNTER 2023-07-23 01:48 | Inpatient (IN) | payer MEDICARE, OTHER ==
[~2023-07-23] VITALS: Ht 162.6 cm; Wt 90.9 kg
[~2023-07-23 01:48] MED LIST changes: +AMLO-257 PO; -ARIP10TA38 PO; +ARIP15TA27 PO; +ATOR20TA PO; -ATOR20TA86 PO; +CINA30 PO; -DIVA-112 PO; -DOCU-385 PO; -DULA0.75 SQ; -OLAN10TA74 PO; -PANT-31 PO; -SEVE800T17 PO; +SEVE800T38 PO; +SODI5POW3 PO
[2023-07-23 02:32] LABS: BASOPHILS % (AUTO) 0.3 % (0.0-2.0); EOSINOPHILS % (AUTO) 0.5 % (1.0-6.0); HEMATOCRIT 37.9 % (41-53); HEMOGLOBIN 12.8 g/dL (13.5-17.5); LYMPHOCYTES # (AUTO) 1.4 K/uL (1.0-4.8); LYMPHOCYTES % (AUTO) 15.9 % (22.0-44.0); MEAN CORPUSCULAR HEMOGLOBIN 31.9 pg (26.0-34.0); MEAN CORPUSCULAR HGB CONC 33.7 G/dL (31.0-37.0); MEAN CORPUSCULAR VOLUME 95 fL (80-100); MONOCYTES # (AUTO) 0.9 K/uL (0.1-1.0); MONOCYTES % (AUTO) 10.6 % (2.0-9.0); NEUTROPHILS # (AUTO) 6.3 K/uL (1.8-7.7); NEUTROPHILS % (AUTO) 72.7 % (40.0-70.0); PLATELET COUNT (AUTO) 188 K/uL (150-450); RED BLOOD CELL COUNT(AUTO) 4.01 MIL/uL (4.50-5.90); RED CELL DISTRIBUTION WIDTH 14.7 % (11.5-14.5); WHITE BLOOD COUNT (AUTO) 8.7 K/uL (4.5-11.0)
[2023-07-23 02:34] LABS: COVID AG,FIA SOURCE NASAL SWAB
[2023-07-23 02:36] LABS: ANION GAP 16 mmol/L (8-16); CALCIUM, TOTAL 9.8 mg/dL (8.8-10.5); CARBON DIOXIDE 21 mmol/L (22-29); CHLORIDE 96 mmol/L (98-107); GLOMERULAR FILTR. RATE CALC 7 mL/min (>60); GLUCOSE,RANDOM 145 mg/dL (70-110); POTASSIUM 5.6 mmol/L (3.5-5.1); SODIUM SERUM 133 mmol/L (136-145); UREA NITROGEN, BLOOD 63 mg/dL (7-18)
[2023-07-23 02:42] LABS: ALANINE AMINOTRANSFERASE 59 U/L (12-78); ALKALINE PHOSPHATASE 253 U/L (46-116); ASPARTATE AMINOTRANSFERASE 103 U/L (15-37); BILIRUBIN,TOTAL 0.7 mg/dL (0.1-1.0); LIPASE 106 U/L (16-77); TOTAL PROTEIN, SERUM 8.1 g/dL (6.4-8.2)
[2023-07-23 02:44] LABS: LACTIC ACID 1.8 mmol/L (0.4-2.0); TROPONIN I-HIGH SENSITIVITY 52 ng/L (<76)
[2023-07-23 02:47] LABS: ALCOHOL, BLOOD (SERUM) < 3 mg/dL (0-10)
[2023-07-23 02:48] LABS: B-TYPE NATRIURETIC PEPTIDE 68 pg/mL (0-100)
[2023-07-23 02:52] LABS: SARS-COV2 (COVID) ANTIGEN,FIA Negative (Negative)
[2023-07-23] MEDS: LORazepam 2 MG/ML VIAL IVP ONE (03:08)
[2023-07-23] MEDS: HALOPERIDOL 5 MG TABLET PO ONE (03:12)
[2023-07-23] MEDS: DEXTROSE 50%-WATER 25 GM/50 ML SYRINGE IVP ONE ×3 (03:12→05:26)
[2023-07-23] MEDS: SODIUM BICARBONATE [ADULT] 8.4% 50 MEQ/50 ML SYRINGE IVP ONE (03:12)
[2023-07-23] MEDS: ARIPiprazole 15 MG TABLET PO ONE (03:13)
[2023-07-23] MEDS: SODIUM ZIRCONIUM CYCLOSILICATE 5 GM POWDER PACKET PO ONE (03:13)
[2023-07-23] MEDS: INSULIN REGULAR, HUMAN 100 UNITS/ML IVP ONE (03:16)
[2023-07-23 06:25] LABS: GLUCOMETER DEV NAME(LOC) ERT.5; GLUCOSE,POINT OF CARE 109 MG/DL (70-110)
[2023-07-23 06:25] LABS: GLUCOMETER DEV NAME(LOC) ERT.5; GLUCOSE,POINT OF CARE 66 MG/DL (70-110)
[2023-07-23 06:26] LABS: GLUCOMETER DEV NAME(LOC) ERT.5; GLUCOSE,POINT OF CARE 49 MG/DL (70-110)
[2023-07-23 06:26] LABS: GLUCOMETER DEV NAME(LOC) ERT.5; GLUCOSE,POINT OF CARE 127 MG/DL (70-110)
[2023-07-23 08:06] LABS: GLUCOMETER DEV NAME(LOC) ERT.5; GLUCOSE,POINT OF CARE 104 MG/DL (70-110)
[2023-07-23 11:12] LABS: CALCIUM, TOTAL 8.8 mg/dL (8.8-10.5); CREATININE 8.45 mg/dL (0.60-1.30); POTASSIUM 5.2 mmol/L (3.5-5.1)
[2023-07-23 13:15] VITALS: BP 120/76; PULSE 90; RESP 14; TEMP 97.7; O2SAT 99
[2023-07-23] MEDS ORDERED: ZOLPIDEM TARTRATE 5 MG TABLET PO PRN (13:30)
[2023-07-23] MEDS ORDERED: BISACODYL 10 MG RECTAL RECTAL SUPPOSITORY PR PRN (13:30)
[2023-07-23] MEDS ORDERED: MORPHINE SULFATE 2 MG/ML SYRINGE IVP PRN (13:30)
[2023-07-23] MEDS ORDERED: ACETAMINOPHEN 325 MG TABLET PO PRN (13:30)
[2023-07-23] MEDS ORDERED: MAGNESIUM HYDROXIDE SUSPENSION 30 ML UDCUP PO PRN (13:30)
[2023-07-23] MEDS ORDERED: HYDROCODONE/ACETAMINOPHEN 5-325 MG TABLET PO PRN (13:30)
[2023-07-23] MEDS ORDERED: ONDANSETRON HCL 4 MG/2 ML VIAL IVP PRN (13:30)
[2023-07-23] MEDS ORDERED: TRAZ-257 PO (13:39)
[2023-07-23] MEDS: HEPARIN SODIUM,PORCINE 5,000 UNITS/ML VIAL SQ SCH (16:59)
[2023-07-23 18:50] VITALS: BP 95/62; PULSE 81; RESP 17; TEMP 98.2
[2023-07-23 20:18] VITALS: BP 109/56; PULSE 76; RESP 19; TEMP 97.6
[2023-07-23] MEDS: TraZODone HCL 100 MG TABLET PO SCH (21:00)
[2023-07-23] MEDS: DOCUSATE SODIUM 100 MG CAPSULE PO SCH (21:00)
[2023-07-23] MEDS: ATORVASTATIN CALCIUM 20 MG TABLET PO SCH (21:57)
[2023-07-24] VITALS (15 sets, daily range): BP systolic 81–113; BP diastolic 43–71; PULSE 65–93; RESP 16–20; TEMP 97.5–98
[2023-07-24] MEDS: LEVOTHYROXINE SODIUM 75 MCG TABLET PO SCH (05:24)
[2023-07-24 07:03] LABS: BASOPHILS % (AUTO) 0.4 % (0.0-2.0); EOSINOPHILS % (AUTO) 0.6 % (1.0-6.0); HEMATOCRIT 36.7 % (41-53); HEMOGLOBIN 12.5 g/dL (13.5-17.5); LYMPHOCYTES # (AUTO) 2.1 K/uL (1.0-4.8); LYMPHOCYTES % (AUTO) 28.1 % (22.0-44.0); MEAN CORPUSCULAR HEMOGLOBIN 32.2 pg (26.0-34.0); MEAN CORPUSCULAR VOLUME 95 fL (80-100); MONOCYTES # (AUTO) 0.5 K/uL (0.1-1.0); MONOCYTES % (AUTO) 6.6 % (2.0-9.0); NEUTROPHILS # (AUTO) 4.7 K/uL (1.8-7.7); NEUTROPHILS % (AUTO) 64.3 % (40.0-70.0); PLATELET COUNT (AUTO) 164 K/uL (150-450); RED BLOOD CELL COUNT(AUTO) 3.88 MIL/uL (4.50-5.90); RED CELL DISTRIBUTION WIDTH 14.5 % (11.5-14.5); WHITE BLOOD COUNT (AUTO) 7.4 K/uL (4.5-11.0)
[2023-07-24 07:09] LABS: CALCIUM, TOTAL 9.1 mg/dL (8.8-10.5); CREATININE 9.5 mg/dL (0.60-1.30); POTASSIUM 5.3 mmol/L (3.5-5.1)
[2023-07-24] MEDS: CINACALCET HCL 30 MG TABLET PO SCH (08:14)
[2023-07-24] MEDS: OMEGA-3/DHA/EPA/FISH OIL 1,000 MG CAPSULE PO SCH (08:18)
[2023-07-24] MEDS: SODIUM ZIRCONIUM CYCLOSILICATE 5 GM POWDER PACKET PO SCH (08:19)
[2023-07-24] MEDS: ARIPiprazole 15 MG TABLET PO SCH (08:19)
[2023-07-24] MEDS: AmLODIPine BESYLATE 5 MG TABLET PO SCH (08:42)
[2023-07-24] MEDS: FOLIC ACID/VIT B COMPLEX AND C TABLET PO SCH ×2 (08:43→11:00)
[2023-07-24] MEDS: PANTOPRAZOLE SODIUM 40 MG DR TABLET PO SCH (08:43)
[2023-07-24 08:56] LABS: GLUCOMETER DEV NAME(LOC) ERT.5; GLUCOSE,POINT OF CARE 81 MG/DL (70-110)
[2023-07-24] MEDS ORDERED: SODIUM CHLORIDE 0.9% 1,000 ML ONE ×2 (10:49→10:50)
[2023-07-24] MEDS: LORazepam 2 MG/ML VIAL IVP PRN (11:49)
[2023-07-24] MEDS: SEVELAMER CARBONATE 800 MG TABLET PO SCH (12:00)
[2023-07-24] MEDS: SODIUM CHLORIDE 0.9% 250 ML IV ONE (22:13)
[2023-07-25 00:06] VITALS: BP 91/47; PULSE 72; RESP 18; TEMP 97.5
[2023-07-25 05:21] VITALS: BP 95/47; PULSE 74; RESP 20; TEMP 97.9
[2023-07-25 06:45] VITALS: BP 109/45; PULSE 84; RESP 20; TEMP 97.4
[2023-07-25 06:52] LABS: BASOPHILS % (AUTO) 0.7 % (0.0-2.0); EOSINOPHILS % (AUTO) 0.7 % (1.0-6.0); HEMATOCRIT 35.9 % (41-53); HEMOGLOBIN 12.3 g/dL (13.5-17.5); LYMPHOCYTES # (AUTO) 1.5 K/uL (1.0-4.8); LYMPHOCYTES % (AUTO) 20.9 % (22.0-44.0); MEAN CORPUSCULAR HEMOGLOBIN 32.1 pg (26.0-34.0); MEAN CORPUSCULAR HGB CONC 34.2 G/dL (31.0-37.0); MEAN CORPUSCULAR VOLUME 94 fL (80-100); MONOCYTES # (AUTO) 0.6 K/uL (0.1-1.0); MONOCYTES % (AUTO) 8.3 % (2.0-9.0); NEUTROPHILS # (AUTO) 4.9 K/uL (1.8-7.7); NEUTROPHILS % (AUTO) 69.4 % (40.0-70.0); PLATELET COUNT (AUTO) 158 K/uL (150-450); RED BLOOD CELL COUNT(AUTO) 3.82 MIL/uL (4.50-5.90); RED CELL DISTRIBUTION WIDTH 14.5 % (11.5-14.5); WHITE BLOOD COUNT (AUTO) 7.1 K/uL (4.5-11.0)
[2023-07-25 07:05] VITALS: BP 105/70; PULSE 74; RESP 18; TEMP 97.6
[2023-07-25 07:19] LABS: CALCIUM, TOTAL 8.1 mg/dL (8.8-10.5); CREATININE 6.48 mg/dL (0.60-1.30); POTASSIUM 4.9 mmol/L (3.5-5.1)
[2023-07-25] MEDS: CINACALCET HCL 30 MG TABLET PO SCH (07:53)
[2023-07-25 11:57] VITALS: BP 113/69; PULSE 82; RESP 18; TEMP 98
[2023-07-25 14:35] VITALS: BP 124/84; PULSE 81; RESP 18; TEMP 98.1
== END 2023-07-25 15:00 | disposition home or self-care (01) | DRG 640 ==
LOC: EMS 01:48 → AHU 03:03 → 5S 12:34
PROVIDERS: ADMIT Internal Medicine; ATTEND Internal Medicine
PROC: 5A1D70Z Performance of Urinary Filtration, Intermittent, Less than 6 Hours Per Day (ICD-10-PCS; principal; 2023-07-24)
DX: E87.5 Hyperkalemia (principal); N18.6 End stage renal disease; F20.0 Paranoid schizophrenia; E87.70 Fluid overload, unspecified; E03.9 Hypothyroidism, unspecified; F31.9 Bipolar disorder, unspecified; F15.90 Other stimulant use, unspecified, uncomplicated; Z20.822 Contact with and (suspected) exposure to COVID-19; G47.00 Insomnia, unspecified; E11.22 Type 2 diabetes mellitus with diabetic chronic kidney disease; D63.1 Anemia in chronic kidney disease; I10 Essential (primary) hypertension; E78.5 Hyperlipidemia, unspecified; M10.9 Gout, unspecified; Z79.899 Other long term (current) drug therapy; Z79.4 Long term (current) use of insulin; Z99.2 Dependence on renal dialysis; Z86.14 Personal history of Methicillin resistant Staphylococcus aureus infection; Z86.79 Personal history of other diseases of the circulatory system
CPT/HCPCS: 71045; 80048; 80053; 82962; 83605; 83690; 83880; 84484; 85025; 87040; 87340; 90935; 93005; 99291; G0480; J1644; J1815; J2060; J3490; J7030; J7050; Q9967; 36415-L1; 36415-TC

== ENCOUNTER 2024-01-20 13:58 | Inpatient (IN) | payer MEDICARE, OTHER ==
[~2024-01-20] VITALS: Ht 172.7 cm; Wt 86.6 kg
[~2024-01-20 13:58] MED LIST changes: -AMLO-257 PO; -FOLI0.8T2 PO; +FOLI0.8T54 PO; +MIDO5TAB29 PO; -TRAZ-257 PO
[2024-01-20] MEDS ORDERED: LORazepam 2 MG/ML VIAL ONE (14:58)
[2024-01-20] MEDS ORDERED: DiphenhydrAMINE HCL 50 MG/ML VIAL ONE (14:58)
[2024-01-20] MEDS ORDERED: HALOPERIDOL LACTATE 5 MG/ML VIAL ONE (14:58)
[2024-01-20] MEDS: HALOPERIDOL LACTATE 5 MG/ML VIAL IM ONE (15:28)
[2024-01-20] MEDS: DiphenhydrAMINE HCL 50 MG/ML VIAL IM ONE (15:28)
[2024-01-20] MEDS: LORazepam 2 MG/ML VIAL IM ONE ×2 (15:28→20:53)
[2024-01-20] MEDS: ChlorproMAZINE HCL 50 MG/2 ML AMP IM ONE ×2 (16:51→18:37)
[2024-01-20 17:19] LABS: BASOPHILS % (AUTO) 0.4 % (0.0-2.0); EOSINOPHILS % (AUTO) 1.7 % (1.0-6.0); HEMATOCRIT 27.8 % (41-53); HEMOGLOBIN 9.3 g/dL (13.5-17.5); LYMPHOCYTES # (AUTO) 1.5 K/uL (1.0-4.8); LYMPHOCYTES % (AUTO) 20.7 % (22.0-44.0); MEAN CORPUSCULAR HEMOGLOBIN 31.3 pg (26.0-34.0); MEAN CORPUSCULAR HGB CONC 33.4 G/dL (31.0-37.0); MEAN CORPUSCULAR VOLUME 94 fL (80-100); MONOCYTES # (AUTO) 0.8 K/uL (0.1-1.0); MONOCYTES % (AUTO) 10.2 % (2.0-9.0); PLATELET COUNT (AUTO) 254 K/uL (150-450); RED BLOOD CELL COUNT(AUTO) 2.97 MIL/uL (4.50-5.90); RED CELL DISTRIBUTION WIDTH 15.1 % (11.5-14.5); WHITE BLOOD COUNT (AUTO) 7.4 K/uL (4.5-11.0)
[2024-01-20 17:29] LABS: ANION GAP 12 mmol/L (8-16); CALCIUM, TOTAL 7.9 mg/dL (8.8-10.5); CARBON DIOXIDE 26 mmol/L (22-29); CHLORIDE 98 mmol/L (98-107); CREATININE 6.19 mg/dL (0.60-1.30); GLOMERULAR FILTR. RATE CALC 10 mL/min (>60); GLUCOSE,RANDOM 99 mg/dL (70-110); POTASSIUM 3.8 mmol/L (3.5-5.1); SODIUM SERUM 136 mmol/L (136-145); UREA NITROGEN, BLOOD 35 mg/dL (7-18)
[2024-01-20 17:42] LABS: ALCOHOL, BLOOD (SERUM) < 3 mg/dL (0-10)
[2024-01-20] MEDS ORDERED: ZOLPIDEM TARTRATE 10 MG TABLET PO PRN (18:00)
[2024-01-20] MEDS ORDERED: HALOPERIDOL 5 MG TABLET PO PRN (18:00)
[2024-01-20] MEDS ORDERED: ZIPRASIDONE MESYLATE 20 MG/VIAL IM ONE (20:13)
[2024-01-20] MEDS: ZIPRASIDONE MESYLATE 20 MG/VIAL IM ONE (20:54)
[2024-01-21] MEDS: LEVOTHYROXINE SODIUM 75 MCG TABLET PO SCH (06:57)
[2024-01-21 08:42] VITALS: BP 116/70; PULSE 57; RESP 19; TEMP 98.3; O2SAT 100
[2024-01-21] MEDS: FOLIC ACID/VIT B COMPLEX AND C TABLET PO SCH (09:51)
[2024-01-21] MEDS: MIDODRINE HCL 5 MG TABLET PO SCH (09:52)
[2024-01-21] MEDS: CINACALCET HCL 30 MG TABLET PO SCH (09:52)
[2024-01-21] MEDS: SEVELAMER CARBONATE 800 MG TABLET PO SCH (09:54)
[2024-01-21] MEDS: AmLODIPine BESYLATE 5 MG TABLET PO SCH (09:54)
[2024-01-21] MEDS: SODIUM ZIRCONIUM CYCLOSILICATE 5 GM POWDER PACKET PO SCH (09:55)
[2024-01-21] MEDS ORDERED: ONDANSETRON HCL 4 MG/2 ML VIAL IVP PRN (10:45)
[2024-01-21] MEDS ORDERED: MAGNESIUM HYDROXIDE SUSPENSION 30 ML UDCUP PO PRN (10:45)
[2024-01-21] MEDS ORDERED: BISACODYL 10 MG RECTAL RECTAL SUPPOSITORY PR PRN (10:45)
[2024-01-21] MEDS ORDERED: ACETAMINOPHEN 325 MG TABLET PO PRN (10:45)
[2024-01-21] MEDS: ARIPiprazole 15 MG TABLET PO SCH (14:28)
[2024-01-21 16:07] VITALS: BP 107/60; PULSE 67; RESP 19; TEMP 98; O2SAT 100
[2024-01-21] MEDS: HEPARIN SODIUM,PORCINE 5,000 UNITS/ML VIAL SQ SCH (17:37)
[2024-01-21 19:51] VITALS: BP 118/66; PULSE 73; RESP 20; TEMP 97.9; O2SAT 99
[2024-01-21] MEDS: TraZODone HCL 100 MG TABLET PO SCH (20:32)
[2024-01-21] MEDS: DOCUSATE SODIUM 100 MG CAPSULE PO SCH (20:32)
[2024-01-21] MEDS: ATORVASTATIN CALCIUM 20 MG TABLET PO SCH (20:32)
[2024-01-21] MEDS: ZOLPIDEM TARTRATE 5 MG TABLET PO PRN (22:41)
[2024-01-22] VITALS (14 sets, daily range): BP systolic 81–151; BP diastolic 45–111; PULSE 60–82; RESP 16–19; TEMP 97.4–98.3; O2SAT 95–100
[2024-01-22] MEDS: LORazepam 2 MG TABLET PO PRN (10:11)
[2024-01-22 10:57] LABS: EOSINOPHILS % (AUTO) 1.9 % (1.0-6.0); HEMATOCRIT 24.4 % (41-53); HEMOGLOBIN 8.1 g/dL (13.5-17.5); LYMPHOCYTES # (AUTO) 1.2 K/uL (1.0-4.8); LYMPHOCYTES % (AUTO) 20.5 % (22.0-44.0); MEAN CORPUSCULAR HEMOGLOBIN 31.1 pg (26.0-34.0); MEAN CORPUSCULAR HGB CONC 33.4 G/dL (31.0-37.0); MEAN CORPUSCULAR VOLUME 93 fL (80-100); MONOCYTES # (AUTO) 0.5 K/uL (0.1-1.0); MONOCYTES % (AUTO) 8.3 % (2.0-9.0); NEUTROPHILS # (AUTO) 4.1 K/uL (1.8-7.7); NEUTROPHILS % (AUTO) 68.3 % (40.0-70.0); PLATELET COUNT (AUTO) 236 K/uL (150-450); RED BLOOD CELL COUNT(AUTO) 2.62 MIL/uL (4.50-5.90)
[2024-01-22] MEDS: PANTOPRAZOLE SODIUM 40 MG DR TABLET PO SCH (14:44)
[2024-01-22 21:21] LABS: CALCIUM, TOTAL 7.7 mg/dL (8.8-10.5); CREATININE 5.67 mg/dL (0.60-1.30); POTASSIUM 4.1 mmol/L (3.5-5.1)
[2024-01-23 04:37] VITALS: BP 96/59; PULSE 72; RESP 20; TEMP 98.2; O2SAT 97
[2024-01-23 07:13] LABS: BASOPHILS % (AUTO) 0.6 % (0.0-2.0); EOSINOPHILS % (AUTO) 1.7 % (1.0-6.0); HEMATOCRIT 28.8 % (41-53); HEMOGLOBIN 9.7 g/dL (13.5-17.5); LYMPHOCYTES # (AUTO) 1.8 K/uL (1.0-4.8); LYMPHOCYTES % (AUTO) 20.5 % (22.0-44.0); MEAN CORPUSCULAR HEMOGLOBIN 31.7 pg (26.0-34.0); MEAN CORPUSCULAR HGB CONC 33.6 G/dL (31.0-37.0); MEAN CORPUSCULAR VOLUME 94 fL (80-100); MONOCYTES # (AUTO) 0.9 K/uL (0.1-1.0); MONOCYTES % (AUTO) 10.7 % (2.0-9.0); NEUTROPHILS # (AUTO) 5.8 K/uL (1.8-7.7); NEUTROPHILS % (AUTO) 66.5 % (40.0-70.0); PLATELET COUNT (AUTO) 270 K/uL (150-450); RED BLOOD CELL COUNT(AUTO) 3.06 MIL/uL (4.50-5.90); RED CELL DISTRIBUTION WIDTH 15.8 % (11.5-14.5); WHITE BLOOD COUNT (AUTO) 8.7 K/uL (4.5-11.0)
[2024-01-23 07:17] VITALS: BP 106/62; PULSE 68; RESP 18; TEMP 97.8; O2SAT 97
[2024-01-23 07:27] LABS: CREATININE 6.6 mg/dL (0.60-1.30)
[2024-01-23] MEDS: EPOETIN ALFA 10,000 UNITS/ML VIAL SQ SCH (11:28)
[2024-01-23] MEDS ORDERED: AMLO-257 PO (12:26)
[2024-01-23] MEDS ORDERED: MIDO5TAB29 PO (12:27)
[2024-01-23] MEDS ORDERED: TRAZ-257 PO (12:31)
[2024-01-23] MEDS ORDERED: HALO5TAB23 PO (12:36)
[2024-01-23 19:04] VITALS: BP 122/92; PULSE 78; RESP 20; TEMP 98.5; O2SAT 96
[2024-01-23 19:15] VITALS: BP 98/63; PULSE 67; RESP 18; TEMP 98.3; O2SAT 97
[2024-01-24] VITALS (14 sets, daily range): BP systolic 94–144; BP diastolic 52–81; PULSE 59–92; RESP 18–20; TEMP 97.5–98.9; O2SAT 96–99
[2024-01-24 06:55] LABS: BASOPHILS % (AUTO) 0.9 % (0.0-2.0); EOSINOPHILS % (AUTO) 1.9 % (1.0-6.0); HEMATOCRIT 27.8 % (41-53); HEMOGLOBIN 9.3 g/dL (13.5-17.5); LYMPHOCYTES # (AUTO) 1.8 K/uL (1.0-4.8); LYMPHOCYTES % (AUTO) 22.8 % (22.0-44.0); MEAN CORPUSCULAR HEMOGLOBIN 31.7 pg (26.0-34.0); MEAN CORPUSCULAR HGB CONC 33.3 G/dL (31.0-37.0); MEAN CORPUSCULAR VOLUME 95 fL (80-100); MONOCYTES # (AUTO) 0.8 K/uL (0.1-1.0); NEUTROPHILS # (AUTO) 5.2 K/uL (1.8-7.7); NEUTROPHILS % (AUTO) 64.4 % (40.0-70.0); PLATELET COUNT (AUTO) 257 K/uL (150-450); RED BLOOD CELL COUNT(AUTO) 2.92 MIL/uL (4.50-5.90); RED CELL DISTRIBUTION WIDTH 15.2 % (11.5-14.5)
[2024-01-24 06:56] LABS: CALCIUM, TOTAL 7.9 mg/dL (8.8-10.5); CREATININE 8.47 mg/dL (0.60-1.30); POTASSIUM 4.8 mmol/L (3.5-5.1)
[2024-01-24] MEDS ORDERED: SODIUM CHLORIDE 0.9% 2,000 ML ONE (07:53)
[2024-01-24 17:19] LABS: COVID AG,FIA SOURCE NASAL SWAB
[2024-01-24 17:38] LABS: SARS-COV2 (COVID) ANTIGEN,FIA Negative (Negative)
[2024-01-25 05:15] VITALS: BP 99/50; PULSE 81; RESP 18; TEMP 98.8; O2SAT 100
[2024-01-25 07:30] VITALS: BP 130/58; PULSE 85; RESP 20; TEMP 98.9; O2SAT 100
[2024-01-25 15:50] VITALS: BP 84/47; RESP 18; O2SAT 100
[2024-01-25 16:03] VITALS: BP 104/48; PULSE 72; RESP 18; TEMP 98.6; O2SAT 94
[2024-01-25 18:00] VITALS: BP 104/57; RESP 18; O2SAT 96
== END 2024-01-25 18:21 | DRG 91 ==
LOC: EMS 13:58 → EDH 18:57 → 6N 01-21 08:20
PROVIDERS: ADMIT Internal Medicine; ATTEND Internal Medicine
PROC: 5A1D70Z Performance of Urinary Filtration, Intermittent, Less than 6 Hours Per Day (ICD-10-PCS; principal; 2024-01-22)
PROC: 5A1D70Z Performance of Urinary Filtration, Intermittent, Less than 6 Hours Per Day (ICD-10-PCS; 2024-01-24)
DX: G92.8 Other toxic encephalopathy (principal); N18.6 End stage renal disease; I12.0 Hypertensive chronic kidney disease with stage 5 chronic kidney disease or end stage renal disease; Z99.2 Dependence on renal dialysis; Z20.822 Contact with and (suspected) exposure to COVID-19; E03.9 Hypothyroidism, unspecified; D63.1 Anemia in chronic kidney disease; E78.5 Hyperlipidemia, unspecified; E11.22 Type 2 diabetes mellitus with diabetic chronic kidney disease; E83.51 Hypocalcemia; E87.5 Hyperkalemia; F25.9 Schizoaffective disorder, unspecified
CPT/HCPCS: 80048; 85025; 87081; 87340; 90935; 99285; G0378; G0480; J0885; J1200; J1630; J1644; J2060; J3230; J3486; J7030

== ENCOUNTER 2024-02-01 15:02 | Inpatient (IN) | payer MEDICARE, OTHER ==
[~2024-02-01] VITALS: Ht 177.8 cm; Wt 89.8 kg
[~2024-02-01 15:02] MED LIST changes: +AMLO-257 PO; +HALO5TAB23 PO; +TRAZ-257 PO
[2024-02-01 16:23] LABS: COVID AG,FIA SOURCE NASAL SWAB
[2024-02-01 16:25] LABS: BASOPHILS % (AUTO) 0.8 % (0.0-2.0); EOSINOPHILS % (AUTO) 1.4 % (1.0-6.0); HEMATOCRIT 26.5 % (41-53); HEMOGLOBIN 8.9 g/dL (13.5-17.5); LYMPHOCYTES # (AUTO) 1.5 K/uL (1.0-4.8); LYMPHOCYTES % (AUTO) 17.2 % (22.0-44.0); MEAN CORPUSCULAR HEMOGLOBIN 32.1 pg (26.0-34.0); MEAN CORPUSCULAR HGB CONC 33.6 G/dL (31.0-37.0); MEAN CORPUSCULAR VOLUME 95 fL (80-100); MONOCYTES # (AUTO) 0.6 K/uL (0.1-1.0); MONOCYTES % (AUTO) 6.6 % (2.0-9.0); NEUTROPHILS # (AUTO) 6.5 K/uL (1.8-7.7); PLATELET COUNT (AUTO) 225 K/uL (150-450); RED BLOOD CELL COUNT(AUTO) 2.77 MIL/uL (4.50-5.90); RED CELL DISTRIBUTION WIDTH 16.1 % (11.5-14.5); WHITE BLOOD COUNT (AUTO) 8.9 K/uL (4.5-11.0)
[2024-02-01 16:32] LABS: ANION GAP 14 mmol/L (8-16); CALCIUM, TOTAL 8.2 mg/dL (8.8-10.5); CARBON DIOXIDE 25 mmol/L (22-29); CHLORIDE 99 mmol/L (98-107); CREATININE 6.82 mg/dL (0.60-1.30); GLOMERULAR FILTR. RATE CALC 9 mL/min (>60); GLUCOSE,RANDOM 92 mg/dL (70-110); POTASSIUM 3.7 mmol/L (3.5-5.1); SODIUM SERUM 138 mmol/L (136-145); UREA NITROGEN, BLOOD 33 mg/dL (7-18)
[2024-02-01 16:38] LABS: ALCOHOL, BLOOD (SERUM) < 3 mg/dL (0-10)
[2024-02-01 16:41] LABS: ALANINE AMINOTRANSFERASE 25 U/L (12-78); ALBUMIN 3.4 g/dL (3.4-5.0); ALKALINE PHOSPHATASE 85 U/L (46-116); ASPARTATE AMINOTRANSFERASE 26 U/L (15-37); BILIRUBIN,TOTAL 0.6 mg/dL (0.1-1.0); TOTAL PROTEIN, SERUM 7.6 g/dL (6.4-8.2)
[2024-02-01 16:42] LABS: TROPONIN I-HIGH SENSITIVITY 20 ng/L (<76)
[2024-02-01 16:45] LABS: B-TYPE NATRIURETIC PEPTIDE 489 pg/mL (0-100)
[2024-02-01 16:48] LABS: SARS-COV2 (COVID) ANTIGEN,FIA Negative (Negative)
[2024-02-02 02:55] VITALS: BP 124/64; PULSE 97; RESP 18; O2SAT 97
[2024-02-02] MEDS: LORazepam 2 MG TABLET PO PRN (06:26)
[2024-02-02] MEDS: HALOPERIDOL 5 MG TABLET PO PRN (06:27)
[2024-02-02] MEDS: LEVOTHYROXINE SODIUM 75 MCG TABLET PO SCH (07:03)
[2024-02-02] MEDS: SEVELAMER CARBONATE 800 MG TABLET PO SCH (08:49)
[2024-02-02] MEDS: CINACALCET HCL 30 MG TABLET PO SCH (08:49)
[2024-02-02] MEDS: PANTOPRAZOLE SODIUM 40 MG DR TABLET PO SCH (08:49)
[2024-02-02] MEDS: FOLIC ACID/VIT B COMPLEX AND C TABLET PO SCH (08:49)
[2024-02-02] MEDS: MIDODRINE HCL 5 MG TABLET PO SCH (08:49)
[2024-02-02] MEDS: AmLODIPine BESYLATE 5 MG TABLET PO SCH (08:49)
[2024-02-02] MEDS: SODIUM ZIRCONIUM CYCLOSILICATE 5 GM POWDER PACKET PO SCH (09:00)
[2024-02-02] MEDS ORDERED: LORazepam 2 MG/ML VIAL ONE (11:57)
[2024-02-02] MEDS: HALOPERIDOL LACTATE 5 MG/ML VIAL IM ONE (12:00)
[2024-02-02] MEDS: DiphenhydrAMINE HCL 50 MG/ML VIAL IM ONE (12:00)
[2024-02-02] MEDS: LORazepam 2 MG/ML VIAL IM ONE (12:00)
[2024-02-02 13:19] VITALS: BP 107/72; PULSE 83; RESP 18; O2SAT 96
[2024-02-02 16:10] LABS: APPEARANCE,URINE TURBID (CLEAR); BILIRUBIN,URINE NEGATIVE (NEGATIVE); COLOR,URINE LIGHT ORANGE (YELLOW); GLUCOSE, URINE (UA) NEGATIVE (NEGATIVE); KETONES,URINE NEGATIVE (NEGATIVE); LEUKOCYTE ESTERASE ,URINE NEGATIVE (NEGATIVE); NITRATE,URINE NEGATIVE (NEGATIVE); OCCULT BLOOD,URINE LARGE (NEGATIVE); PROTEIN,URINE 300-600,SEE CONFIRM mg/dL (NEGATIVE); SPECIFIC GRAVITIY, URINE 1.009 (1.003-1.030); UROBILINOGEN,URINE <=1.0 mg/dL (<=1.0)
[2024-02-02 16:33] LABS: SULFOSALICYLIC ACID,URINE 2+ (Negative)
[2024-02-02 16:43] LABS: ALCOHOL, URINE DRUG SCREEN NEGATIVE (NEGATIVE); AMPHET/METH SCREEN,URINE NEGATIVE (NEGATIVE); BARBITURATE SCREEN, URINE NEGATIVE (NEGATIVE); BENZODIAZEPINES SCREEN,URINE NEGATIVE (NEGATIVE); CANNABINOID SCREEN,URINE NEGATIVE (NEGATIVE); COCAINE SCREEN,URINE NEGATIVE (NEGATIVE); METHADONE SCREEN, URINE NEGATIVE (NEGATIVE); OPIATE SCREEN,URINE NEGATIVE (NEGATIVE); PHENCYCLIDINE SCREEN,URINE NEGATIVE (NEGATIVE)
[2024-02-02 16:45] LABS: BACTERIA,URINE None Seen /HPF (None Seen); RBC,URINE >100 /HPF (0-2)
[2024-02-02 16:56] LABS: URINALYSIS COMMENT Moderate Spermatozoa
[2024-02-02 20:39] VITALS: BP 119/74; PULSE 90; RESP 18; TEMP 97.1; O2SAT 99
[2024-02-02] MEDS ORDERED: NICOTINE 14 MG/24 HOUR PATCH TD PRN (20:45)
[2024-02-02] MEDS ORDERED: CloNIDine HCL 0.1 MG TABLET PO PRN (20:45)
[2024-02-02] MEDS ORDERED: GuaiFENesin/D-METHORPHAN [SUGAR-FREE] 200-20MG/10 ML SYRUP UDCUP PO PRN (20:45)
[2024-02-02] MEDS ORDERED: ONDANSETRON 4 MG TABLET PO PRN (20:45)
[2024-02-02] MEDS ORDERED: ALBUTEROL SULFATE HFA 90 MCG/PUFF 8 GM INHALER IH PRN (20:45)
[2024-02-02] MEDS ORDERED: PETROLATUM,WHITE 28 GM JELLY TP PRN (20:45)
[2024-02-02] MEDS ORDERED: DOCUSATE SODIUM 100 MG CAPSULE PO PRN (20:45)
[2024-02-02] MEDS ORDERED: MAG HYDROX/ALUMINUM HYD/SIMETH ES 30 ML SUSPENSION UDCUP PO PRN (20:45)
[2024-02-02] MEDS ORDERED: LOPERAMIDE HCL 2 MG CAPSULE PO PRN (20:45)
[2024-02-02] MEDS ORDERED: ACETAMINOPHEN 325 MG TABLET PO PRN (20:45)
[2024-02-02] MEDS ORDERED: MAGNESIUM HYDROXIDE SUSPENSION 30 ML UDCUP PO PRN (20:45)
[2024-02-02] MEDS: ZOLPIDEM TARTRATE 10 MG TABLET PO PRN (21:41)
[2024-02-02] MEDS: ATORVASTATIN CALCIUM 20 MG TABLET PO SCH (21:41)
[2024-02-02] MEDS: TraZODone HCL 100 MG TABLET PO SCH (21:41)
[2024-02-03 07:16] LABS: HEMOGLOBIN A1C 5.1 % (3.8-5.6)
[2024-02-03 07:30] LABS: THYROID STIMULATING HORMONE 1.75 uIU/mL (0.36-3.74)
[2024-02-03] MEDS: ARIPiprazole 10 MG TABLET PO SCH (08:34)
[2024-02-03 09:09] LABS: CHOL/HDL RATIO 2.6 (4.2-7.3)
[2024-02-03 09:15] VITALS: BP 98/64; PULSE 70; RESP 20
[2024-02-03 09:25] VITALS: BP 95/54; PULSE 68; RESP 20
[2024-02-03 09:45] VITALS: BP 95/66; PULSE 74; RESP 20
[2024-02-03 10:51] VITALS: BP 98/60; PULSE 82; RESP 14; TEMP 97.5; O2SAT 100
[2024-02-03 11:08] LABS: CALCIUM, TOTAL 7.7 mg/dL (8.8-10.5); CREATININE 9.97 mg/dL (0.60-1.30); MAGNESIUM 2.3 mg/dL (1.80-2.40); PHOSPHORUS 6.2 mg/dL (2.5-4.9); POTASSIUM 4.2 mmol/L (3.5-5.1)
[2024-02-03 20:22] VITALS: BP 106/62; PULSE 74; RESP 16; TEMP 98.1; O2SAT 99
[2024-02-04] VITALS (11 sets, daily range): BP systolic 108–159; BP diastolic 50–135; PULSE 60–92; RESP 17–20; TEMP 97.4–98.2; O2SAT 97
[2024-02-05 11:20] VITALS: BP 119/78; PULSE 60; RESP 18; TEMP 97; O2SAT 95
[2024-02-05] MEDS: SODIUM ZIRCONIUM CYCLOSILICATE 5 GM POWDER PACKET PO SCH (14:00)
[2024-02-05 21:00] VITALS: BP 113/64; PULSE 80; RESP 18; TEMP 98.2; O2SAT 95
[2024-02-06] VITALS (14 sets, daily range): BP systolic 84–135; BP diastolic 54–98; PULSE 53–86; RESP 16–18; TEMP 97.2–97.8; O2SAT 95–98
[2024-02-07] MEDS ORDERED: HALOPERIDOL LACTATE 5 MG/ML VIAL ONE (10:09)
[2024-02-07] MEDS ORDERED: DiphenhydrAMINE HCL 50 MG/ML VIAL ONE (10:09)
[2024-02-07] MEDS ORDERED: ChlorproMAZINE HCL 50 MG/2 ML AMP ONE (10:10)
[2024-02-07 10:15] VITALS: BP 110/70; PULSE 80; RESP 18; TEMP 97.8; O2SAT 98
[2024-02-07] MEDS: LORazepam 2 MG/ML VIAL IM ONE (10:24)
[2024-02-07] MEDS: DiphenhydrAMINE HCL 50 MG/ML VIAL IM ONE (10:25)
[2024-02-07] MEDS: ChlorproMAZINE HCL 50 MG/2 ML AMP IM ONE (10:26)
[2024-02-07] MEDS: ARIPiprazole LAUROXIL,SUBMICR. ER SUSPENSION 675 MG/2.4 ML SYRINGE IM ONE (11:22)
[2024-02-07] MEDS: ARIPiprazole LAUROXIL ER SUSPENSION 882 MG/3.2 ML SYRINGE IM ONE (11:22)
[2024-02-07 22:30] VITALS: BP 109/64; PULSE 69; RESP 18; TEMP 97.6; O2SAT 97
[2024-02-08] VITALS (11 sets, daily range): BP systolic 94–121; BP diastolic 54–90; PULSE 60–93; RESP 18; TEMP 97.2–97.4; O2SAT 95–100
[2024-02-08 08:27] LABS: CALCIUM, TOTAL 8.4 mg/dL (8.8-10.5); CREATININE 8.64 mg/dL (0.60-1.30); POTASSIUM 5.4 mmol/L (3.5-5.1)
[2024-02-09 10:41] VITALS: BP 97/67; PULSE 89; RESP 20; O2SAT 98
[2024-02-09 21:10] VITALS: BP 131/79; PULSE 77; RESP 18; TEMP 98; O2SAT 97
[2024-02-10 09:05] VITALS: BP 94/63; PULSE 68; RESP 18; TEMP 97; O2SAT 95
[2024-02-10 20:39] VITALS: BP 105/71; PULSE 69; RESP 18; TEMP 97.2; O2SAT 96
[2024-02-11] VITALS (11 sets, daily range): BP systolic 106–140; BP diastolic 57–86; PULSE 60–80; RESP 17–18; TEMP 97.8–98.1; O2SAT 97–100
[2024-02-11 09:42] LABS: CALCIUM, TOTAL 8.1 mg/dL (8.8-10.5); CREATININE 9.97 mg/dL (0.60-1.30); POTASSIUM 5.7 mmol/L (3.5-5.1)
[2024-02-11 09:45] LABS: EOSINOPHILS % (AUTO) 2.7 % (1.0-6.0); HEMOGLOBIN 8.9 g/dL (13.5-17.5); LYMPHOCYTES # (AUTO) 1.5 K/uL (1.0-4.8); LYMPHOCYTES % (AUTO) 18.9 % (22.0-44.0); MEAN CORPUSCULAR HEMOGLOBIN 31.3 pg (26.0-34.0); MEAN CORPUSCULAR HGB CONC 32.9 G/dL (31.0-37.0); MEAN CORPUSCULAR VOLUME 95 fL (80-100); MONOCYTES # (AUTO) 0.6 K/uL (0.1-1.0); MONOCYTES % (AUTO) 7.3 % (2.0-9.0); NEUTROPHILS # (AUTO) 5.5 K/uL (1.8-7.7); NEUTROPHILS % (AUTO) 70.1 % (40.0-70.0); PLATELET COUNT (AUTO) 244 K/uL (150-450); RED BLOOD CELL COUNT(AUTO) 2.84 MIL/uL (4.50-5.90); RED CELL DISTRIBUTION WIDTH 15.4 % (11.5-14.5); WHITE BLOOD COUNT (AUTO) 7.8 K/uL (4.5-11.0)
[2024-02-11 09:50] LABS: MAGNESIUM 2.4 mg/dL (1.80-2.40); PHOSPHORUS 5.3 mg/dL (2.5-4.9)
[2024-02-11] MEDS: POTASSIUM CHLORIDE 20 MEQ ER TABLET PO ONE (16:15)
[2024-02-11] MEDS: LORazepam 2 MG/ML VIAL IM ONE (16:52)
[2024-02-12 10:40] VITALS: BP 115/71; PULSE 87; RESP 19; TEMP 97.9; O2SAT 99
[2024-02-12 21:24] VITALS: BP 105/68; PULSE 77; RESP 18; TEMP 98.1; O2SAT 97
[2024-02-13] VITALS (11 sets, daily range): BP systolic 96–151; BP diastolic 47–125; PULSE 59–81; RESP 18; TEMP 97.6–98.7; O2SAT 98–100
[2024-02-13] MEDS: VALPROIC ACID 250 MG/5 ML SOLUTION UDCUP PO SCH (08:45)
[2024-02-14 08:01] LABS: BASOPHILS % (AUTO) 1.1 % (0.0-2.0); EOSINOPHILS % (AUTO) 1.8 % (1.0-6.0); HEMATOCRIT 23.9 % (41-53); HEMOGLOBIN 7.9 g/dL (13.5-17.5); LYMPHOCYTES # (AUTO) 1.7 K/uL (1.0-4.8); LYMPHOCYTES % (AUTO) 28.3 % (22.0-44.0); MEAN CORPUSCULAR HEMOGLOBIN 31.3 pg (26.0-34.0); MEAN CORPUSCULAR HGB CONC 33.2 G/dL (31.0-37.0); MEAN CORPUSCULAR VOLUME 94 fL (80-100); MONOCYTES # (AUTO) 0.6 K/uL (0.1-1.0); MONOCYTES % (AUTO) 9.9 % (2.0-9.0); NEUTROPHILS # (AUTO) 3.5 K/uL (1.8-7.7); NEUTROPHILS % (AUTO) 58.9 % (40.0-70.0); PLATELET COUNT (AUTO) 196 K/uL (150-450); RED BLOOD CELL COUNT(AUTO) 2.53 MIL/uL (4.50-5.90); RED CELL DISTRIBUTION WIDTH 15.5 % (11.5-14.5); WHITE BLOOD COUNT (AUTO) 5.9 K/uL (4.5-11.0)
[2024-02-14 08:27] LABS: CALCIUM, TOTAL 7.8 mg/dL (8.8-10.5); CREATININE 5.37 mg/dL (0.60-1.30); MAGNESIUM 1.9 mg/dL (1.80-2.40); PHOSPHORUS 4.2 mg/dL (2.5-4.9); POTASSIUM 4.7 mmol/L (3.5-5.1)
[2024-02-14 08:36] VITALS: BP 103/62; PULSE 79; RESP 17; TEMP 98.2; O2SAT 100
[2024-02-14 21:18] VITALS: BP 131/65; PULSE 69; RESP 18; TEMP 98; O2SAT 99
[2024-02-15] VITALS (11 sets, daily range): BP systolic 95–151; BP diastolic 55–89; PULSE 59–99; RESP 18–20; TEMP 96.8–98.4; O2SAT 98–99
[2024-02-15] MEDS: EPOETIN ALFA 10,000 UNITS/ML VIAL SQ SCH (14:26)
[2024-02-16] VITALS (10 sets, daily range): BP systolic 1–135; BP diastolic 63–82; PULSE 57–77; RESP 17–18; TEMP 97.3–97.6; O2SAT 100
[2024-02-16 20:07] LABS: EOSINOPHILS % (AUTO) 3.3 % (1.0-6.0); HEMATOCRIT 21.3 % (41-53); HEMOGLOBIN 7.1 g/dL (13.5-17.5); LYMPHOCYTES # (AUTO) 1.3 K/uL (1.0-4.8); LYMPHOCYTES % (AUTO) 24.6 % (22.0-44.0); MEAN CORPUSCULAR HEMOGLOBIN 31.5 pg (26.0-34.0); MEAN CORPUSCULAR HGB CONC 33.2 G/dL (31.0-37.0); MEAN CORPUSCULAR VOLUME 95 fL (80-100); MONOCYTES # (AUTO) 0.4 K/uL (0.1-1.0); MONOCYTES % (AUTO) 7.9 % (2.0-9.0); NEUTROPHILS # (AUTO) 3.4 K/uL (1.8-7.7); NEUTROPHILS % (AUTO) 63.2 % (40.0-70.0); PLATELET COUNT (AUTO) 156 K/uL (150-450); RED BLOOD CELL COUNT(AUTO) 2.24 MIL/uL (4.50-5.90); RED CELL DISTRIBUTION WIDTH 15.4 % (11.5-14.5); WHITE BLOOD COUNT (AUTO) 5.4 K/uL (4.5-11.0)
[2024-02-16 20:25] LABS: CALCIUM, TOTAL 7.9 mg/dL (8.8-10.5); CREATININE 4.57 mg/dL (0.60-1.30); MAGNESIUM 1.6 mg/dL (1.80-2.40); PHOSPHORUS 3.1 mg/dL (2.5-4.9); POTASSIUM 4.4 mmol/L (3.5-5.1)
[2024-02-17 09:39] VITALS: BP 132/72; PULSE 67; RESP 18; TEMP 97.7; O2SAT 100
[2024-02-17 21:24] VITALS: BP 113/74; PULSE 77; RESP 18; TEMP 97; O2SAT 100
[2024-02-18 09:42] LABS: HEMATOCRIT 25.6 % (41-53); HEMOGLOBIN 8.5 g/dL (13.5-17.5)
[2024-02-18 09:57] LABS: % IRON SATURATION 47.2 % (30-44)
[2024-02-18 10:09] LABS: CALCIUM, TOTAL 8.1 mg/dL (8.8-10.5); CREATININE 6.45 mg/dL (0.60-1.30); POTASSIUM 4.7 mmol/L (3.5-5.1)
[2024-02-18 10:21] VITALS: BP 121/63; PULSE 66; RESP 18; TEMP 97.7; O2SAT 97
[2024-02-18 10:34] LABS: MAGNESIUM 1.9 mg/dL (1.80-2.40); PHOSPHORUS 3.5 mg/dL (2.5-4.9)
[2024-02-18 21:33] VITALS: BP 143/78; PULSE 67; RESP 18; TEMP 98.2; O2SAT 98
[2024-02-19] VITALS (11 sets, daily range): BP systolic 98–150; BP diastolic 61–82; PULSE 50–95; RESP 16–18; TEMP 97.2–97.6; O2SAT 95–100
[2024-02-19] MEDS: VALPROIC ACID 250 MG/5 ML SOLUTION UDCUP PO SCH (21:09)
[2024-02-20 08:06] LABS: PARATHYROID HORMONE INTACT 97 pg/mL (15-65)
[2024-02-20 09:03] VITALS: BP 117/65; PULSE 74; RESP 16; TEMP 97.9; O2SAT 97
[2024-02-20 21:19] VITALS: BP 122/56; PULSE 62; RESP 18; TEMP 97.9; O2SAT 99
[2024-02-21] VITALS (11 sets, daily range): BP systolic 118–160; BP diastolic 60–94; PULSE 45–63; RESP 18–19; TEMP 97.3–98.1; O2SAT 98
[2024-02-22 17:30] VITALS: BP 113/69; PULSE 64; RESP 18; TEMP 98.1; O2SAT 100
[2024-02-22 21:01] VITALS: BP 128/57; PULSE 69; RESP 16; TEMP 98.1; O2SAT 98
[2024-02-23] VITALS (11 sets, daily range): BP systolic 108–151; BP diastolic 52–79; PULSE 53–74; RESP 18; TEMP 97.2–97.8; O2SAT 100
[2024-02-23] MEDS: MIDODRINE HCL 5 MG TABLET PO SCH (08:28)
[2024-02-24 08:23] VITALS: BP 113/64; PULSE 78; RESP 18; TEMP 97.5; O2SAT 99
[2024-02-24 08:24] VITALS: BP 113/64; PULSE 78; RESP 18; TEMP 97.5; O2SAT 99
[2024-02-24] MEDS: BACITRACIN 28 GM OINTMENT TP SCH (09:00)
[2024-02-24] MEDS: SODIUM ZIRCONIUM CYCLOSILICATE 5 GM POWDER PACKET PO SCH (09:26)
[2024-02-24 20:30] VITALS: BP 150/73; PULSE 69; RESP 19; TEMP 97.7; O2SAT 96
[2024-02-25 10:09] VITALS: BP 115/62; PULSE 0; RESP 19; TEMP 97.4; O2SAT 100
[2024-02-25 21:20] VITALS: BP 118/70; PULSE 80; RESP 18; TEMP 97; O2SAT 98
[2024-02-26] VITALS (9 sets, daily range): BP systolic 117–145; BP diastolic 63–79; PULSE 58–72; RESP 16–18; TEMP 97.9–98; O2SAT 96–99
[2024-02-27 00:20] VITALS: BP 112/62; PULSE 59; RESP 16
[2024-02-27 00:50] VITALS: BP 119/72; PULSE 61; RESP 16
[2024-02-27 07:21] LABS: BASOPHILS % (AUTO) 0.6 % (0.0-2.0); EOSINOPHILS % (AUTO) 2.1 % (1.0-6.0); HEMATOCRIT 26.9 % (41-53); HEMOGLOBIN 9.1 g/dL (13.5-17.5); LYMPHOCYTES # (AUTO) 1.5 K/uL (1.0-4.8); LYMPHOCYTES % (AUTO) 26.7 % (22.0-44.0); MEAN CORPUSCULAR HEMOGLOBIN 32.4 pg (26.0-34.0); MEAN CORPUSCULAR VOLUME 95 fL (80-100); MONOCYTES # (AUTO) 0.6 K/uL (0.1-1.0); MONOCYTES % (AUTO) 10.4 % (2.0-9.0); NEUTROPHILS # (AUTO) 3.3 K/uL (1.8-7.7); NEUTROPHILS % (AUTO) 60.2 % (40.0-70.0); PLATELET COUNT (AUTO) 104 K/uL (150-450); RED BLOOD CELL COUNT(AUTO) 2.82 MIL/uL (4.50-5.90); RED CELL DISTRIBUTION WIDTH 15.7 % (11.5-14.5); WHITE BLOOD COUNT (AUTO) 5.4 K/uL (4.5-11.0)
[2024-02-27 07:35] LABS: CALCIUM, TOTAL 8.3 mg/dL (8.8-10.5); CREATININE 5.93 mg/dL (0.60-1.30); POTASSIUM 4.3 mmol/L (3.5-5.1)
[2024-02-27 09:16] VITALS: BP 134/79; PULSE 66; TEMP 97.8; O2SAT 99
[2024-02-27 23:09] VITALS: BP 142/68; PULSE 68; RESP 18; TEMP 97.7; O2SAT 95
[2024-02-28] VITALS (11 sets, daily range): BP systolic 125–157; BP diastolic 60–91; PULSE 47–82; RESP 16–18; TEMP 97.5–97.9; O2SAT 100
[2024-02-29 10:06] VITALS: BP 119/59; PULSE 72; RESP 18; TEMP 98.8; O2SAT 96
[2024-02-29 21:33] VITALS: BP 107/53; PULSE 69; RESP 18; TEMP 98.1; O2SAT 99
[2024-03-01] VITALS (15 sets, daily range): BP systolic 107–152; BP diastolic 49–75; PULSE 48–64; RESP 18; TEMP 95–98.1; O2SAT 97
[2024-03-02 10:26] VITALS: BP 122/75; PULSE 60; RESP 16; TEMP 97.7; O2SAT 98
[2024-03-02 20:28] VITALS: BP 121/71; PULSE 62; RESP 18; TEMP 98.4; O2SAT 97
[2024-03-03 11:47] VITALS: BP 145/71; PULSE 66; RESP 17; TEMP 97.8; O2SAT 100
[2024-03-03 20:56] VITALS: BP 128/73; PULSE 75; RESP 18; TEMP 97.9
[2024-03-04] VITALS (11 sets, daily range): BP systolic 130–158; BP diastolic 58–92; PULSE 50–65; RESP 18; TEMP 97.2–97.8; O2SAT 99–100
[2024-03-04 07:32] LABS: CALCIUM, TOTAL 8.6 mg/dL (8.8-10.5); CREATININE 5.62 mg/dL (0.60-1.30); MAGNESIUM 2.2 mg/dL (1.80-2.40)
[2024-03-04 08:00] LABS: BASOPHILS % (AUTO) 0.4 % (0.0-2.0); EOSINOPHILS % (AUTO) 1.9 % (1.0-6.0); HEMOGLOBIN 7.3 g/dL (13.5-17.5); LYMPHOCYTES % (AUTO) 21.1 % (22.0-44.0); MEAN CORPUSCULAR HEMOGLOBIN 31.6 pg (26.0-34.0); MEAN CORPUSCULAR HGB CONC 33.3 G/dL (31.0-37.0); MEAN CORPUSCULAR VOLUME 95 fL (80-100); MONOCYTES # (AUTO) 0.3 K/uL (0.1-1.0); MONOCYTES % (AUTO) 6.7 % (2.0-9.0); NEUTROPHILS # (AUTO) 3.3 K/uL (1.8-7.7); NEUTROPHILS % (AUTO) 69.9 % (40.0-70.0); RED BLOOD CELL COUNT(AUTO) 2.32 MIL/uL (4.50-5.90); RED CELL DISTRIBUTION WIDTH 15.1 % (11.5-14.5); WHITE BLOOD COUNT (AUTO) 4.8 K/uL (4.5-11.0)
[2024-03-04 09:52] LABS: PLATELET COUNT (AUTO) 66 K/uL (150-450)
[2024-03-05 08:00] VITALS: BP 155/88; PULSE 65; RESP 17; TEMP 96.4; O2SAT 96
[2024-03-05 21:55] VITALS: BP 129/75; PULSE 74; RESP 18; TEMP 97.8; O2SAT 97
[2024-03-06 09:03] VITALS: BP 178/98; PULSE 67; RESP 18; TEMP 98.5; O2SAT 98
[2024-03-06 22:05] VITALS: BP 169/62; PULSE 62; RESP 20; TEMP 97.6; O2SAT 100
[2024-03-07] VITALS (11 sets, daily range): BP systolic 120–150; BP diastolic 59–98; PULSE 58–68; RESP 18–20; TEMP 97.3–97.6; O2SAT 98
[2024-03-07] MEDS: DOXERCALCIFEROL 0.5 MCG CAPSULE PO SCH (09:26)
[2024-03-08 07:09] LABS: BASOPHILS % (AUTO) 0.5 % (0.0-2.0); EOSINOPHILS % (AUTO) 1.5 % (1.0-6.0); HEMOGLOBIN 8.8 g/dL (13.5-17.5); LYMPHOCYTES # (AUTO) 1.4 K/uL (1.0-4.8); MEAN CORPUSCULAR HEMOGLOBIN 31.8 pg (26.0-34.0); MEAN CORPUSCULAR HGB CONC 33.8 G/dL (31.0-37.0); MEAN CORPUSCULAR VOLUME 94 fL (80-100); MONOCYTES # (AUTO) 0.6 K/uL (0.1-1.0); MONOCYTES % (AUTO) 10.8 % (2.0-9.0); NEUTROPHILS # (AUTO) 3.2 K/uL (1.8-7.7); NEUTROPHILS % (AUTO) 60.2 % (40.0-70.0); PLATELET COUNT (AUTO) 102 K/uL (150-450); RED BLOOD CELL COUNT(AUTO) 2.76 MIL/uL (4.50-5.90); RED CELL DISTRIBUTION WIDTH 15.2 % (11.5-14.5); WHITE BLOOD COUNT (AUTO) 5.2 K/uL (4.5-11.0)
[2024-03-08 07:16] LABS: CREATININE 5.82 mg/dL (0.60-1.30); MAGNESIUM 2.3 mg/dL (1.80-2.40); PHOSPHORUS 4.2 mg/dL (2.5-4.9); POTASSIUM 4.3 mmol/L (3.5-5.1)
[2024-03-08] MEDS: ARIPiprazole LAUROXIL ER SUSPENSION 882 MG/3.2 ML SYRINGE IM SCH (08:44)
[2024-03-08 08:54] VITALS: BP 112/60; PULSE 64; RESP 16; O2SAT 97
[2024-03-08 21:06] VITALS: BP 144/66; PULSE 98; RESP 18; TEMP 98; O2SAT 98
[2024-03-09] VITALS (12 sets, daily range): BP systolic 113–160; BP diastolic 57–86; PULSE 55–72; RESP 16–18; TEMP 97.9; O2SAT 95
[2024-03-10 18:56] VITALS: BP 145/67; PULSE 63; RESP 19; TEMP 97; O2SAT 100
[2024-03-10 22:39] VITALS: BP 137/72; PULSE 67; RESP 18; TEMP 97.9; O2SAT 97
[2024-03-11] VITALS (10 sets, daily range): BP systolic 125–168; BP diastolic 44–85; PULSE 60–73; RESP 16–18; TEMP 97.4–98.3; O2SAT 98–99
[2024-03-11 08:07] LABS: PARATHYROID HORMONE INTACT 199 pg/mL (15-65)
[2024-03-12 09:48] VITALS: BP 145/78; PULSE 72; RESP 17; TEMP 97.4; O2SAT 97
[2024-03-12 22:12] VITALS: BP 148/67; PULSE 65; RESP 18; TEMP 97.7; O2SAT 96
[2024-03-13] VITALS (11 sets, daily range): BP systolic 132–180; BP diastolic 60–97; PULSE 59–69; RESP 17–18; TEMP 97–97.3; O2SAT 98–100
[2024-03-13] MEDS: DiphenhydrAMINE HCL 50 MG/ML VIAL IVP PRN (14:58)
[2024-03-14 09:25] VITALS: BP 187/107; PULSE 75; RESP 18; TEMP 97.6; O2SAT 98
[2024-03-14 16:36] LABS: CALCIUM, TOTAL 9.5 mg/dL (8.8-10.5); CREATININE 6.14 mg/dL (0.60-1.30); POTASSIUM 5.1 mmol/L (3.5-5.1)
[2024-03-14 20:36] VITALS: BP 137/67; PULSE 73; RESP 18; TEMP 97.7; O2SAT 99
[2024-03-15] VITALS (12 sets, daily range): BP systolic 122–155; BP diastolic 67–82; PULSE 59–72; RESP 18–19; TEMP 97.3–98.2; O2SAT 98–100
[2024-03-16 08:35] VITALS: BP 159/85; PULSE 71; RESP 17; TEMP 97.6; O2SAT 100
[2024-03-16 21:14] VITALS: BP 143/78; PULSE 71; RESP 18; TEMP 98.1; O2SAT 97
[2024-03-17 10:06] VITALS: BP 120/74; PULSE 84; RESP 18; TEMP 98; O2SAT 98
[2024-03-17 20:49] VITALS: BP 132/64; PULSE 75; RESP 18; TEMP 97.2; O2SAT 96
[2024-03-18] VITALS (12 sets, daily range): BP systolic 133–166; BP diastolic 70–95; PULSE 61–92; RESP 16–18; TEMP 97.8–98.2; O2SAT 95–98
[2024-03-19 10:16] VITALS: BP 145/65; PULSE 65; RESP 19; TEMP 97.5; O2SAT 96
[2024-03-19 14:44] LABS: CALCIUM, TOTAL 8.9 mg/dL (8.8-10.5); CREATININE 6.34 mg/dL (0.60-1.30); POTASSIUM 4.6 mmol/L (3.5-5.1)
[2024-03-19 21:11] VITALS: BP 138/70; PULSE 76; RESP 18; TEMP 97.3; O2SAT 96
[2024-03-20] VITALS (11 sets, daily range): BP systolic 129–167; BP diastolic 75–98; PULSE 59–84; RESP 17–18; TEMP 97.4–98.1; O2SAT 19–95
[2024-03-21 10:31] VITALS: BP 150/84; PULSE 74; RESP 18; TEMP 97.2; O2SAT 98
[2024-03-21 20:57] VITALS: BP 143/73; PULSE 74; RESP 18; TEMP 97.4; O2SAT 98
[2024-03-22] VITALS (11 sets, daily range): BP systolic 129–167; BP diastolic 63–101; PULSE 60–82; RESP 18–19; TEMP 96.8–98; O2SAT 97–98
[2024-03-23 09:43] VITALS: BP 144/80; PULSE 86; RESP 18; TEMP 97.2; O2SAT 98
[2024-03-23 22:34] VITALS: BP 170/69; PULSE 88; RESP 18; TEMP 97.9; O2SAT 99
[2024-03-24 06:30] LABS: BASOPHILS % (AUTO) 0.8 % (0.0-2.0); EOSINOPHILS % (AUTO) 2.1 % (1.0-6.0); LYMPHOCYTES # (AUTO) 1.1 K/uL (1.0-4.8); LYMPHOCYTES % (AUTO) 30.3 % (22.0-44.0); MEAN CORPUSCULAR HEMOGLOBIN 32.5 pg (26.0-34.0); MEAN CORPUSCULAR HGB CONC 33.6 G/dL (31.0-37.0); MEAN CORPUSCULAR VOLUME 97 fL (80-100); MONOCYTES # (AUTO) 0.4 K/uL (0.1-1.0); MONOCYTES % (AUTO) 12.2 % (2.0-9.0); NEUTROPHILS # (AUTO) 1.9 K/uL (1.8-7.7); NEUTROPHILS % (AUTO) 54.6 % (40.0-70.0); PLATELET COUNT (AUTO) 56 K/uL (150-450); RED BLOOD CELL COUNT(AUTO) 2.13 MIL/uL (4.50-5.90); RED CELL DISTRIBUTION WIDTH 17.1 % (11.5-14.5); WHITE BLOOD COUNT (AUTO) 3.5 K/uL (4.5-11.0)
[2024-03-24 06:49] LABS: CALCIUM, TOTAL 8.8 mg/dL (8.8-10.5); CREATININE 7.27 mg/dL (0.60-1.30)
[2024-03-24 07:00] LABS: HEMATOCRIT 20.6 % (41-53); HEMOGLOBIN 6.9 g/dL (13.5-17.5)
[2024-03-24 07:02] LABS: RBC MORPHOLOGY COMMENT ABNORMAL RBC MORPH
[2024-03-24] MEDS ORDERED: GUAIFDM PO (23:36)
[2024-03-24] MEDS ORDERED: DOCU-385 PO (23:36)
[2024-03-24] MEDS ORDERED: PANT-31 PO (23:36)
[2024-03-24] MEDS ORDERED: ACET650S39 PO (23:36)
[2024-03-24] MEDS ORDERED: LORA-1001 PO (23:36)
[2024-03-24] MEDS ORDERED: NICO-703 TD (23:36)
[2024-03-24] MEDS ORDERED: LOPE-232 PO (23:36)
[2024-03-24] MEDS ORDERED: ALBU18HF12 IH (23:36)
[2024-03-24] MEDS ORDERED: HALO5TAB23 PO (23:36)
[2024-03-24] MEDS ORDERED: CLON0.1T2 PO (23:36)
[2024-03-24] MEDS ORDERED: ZOLP-162 PO (23:36)
[2024-03-24] MEDS ORDERED: ONDA-104 PO (23:36)
[2024-03-24] MEDS ORDERED: VALP250C48 PO ×2 (23:36)
== END 2024-03-24 10:00 | disposition short-term general hospital (02) | DRG 885 ==
LOC: EMS 15:05 → 3EX 02-02 00:26
PROVIDERS: ADMIT Psychiatry & Neurology Psychiatry; ATTEND Psychiatry & Neurology Psychiatry
PROC: GZ56ZZZ Individual Psychotherapy, Supportive (ICD-10-PCS; principal; 2024-02-02)
PROC: GZHZZZZ Group Psychotherapy (ICD-10-PCS; 2024-02-02)
PROC: 5A1D70Z Performance of Urinary Filtration, Intermittent, Less than 6 Hours Per Day (ICD-10-PCS; 2024-02-03)
PROC: 5A1D70Z Performance of Urinary Filtration, Intermittent, Less than 6 Hours Per Day (ICD-10-PCS; 2024-02-04)
PROC: 5A1D70Z Performance of Urinary Filtration, Intermittent, Less than 6 Hours Per Day (ICD-10-PCS; 2024-02-06)
PROC: 5A1D70Z Performance of Urinary Filtration, Intermittent, Less than 6 Hours Per Day (ICD-10-PCS; 2024-02-08)
PROC: 5A1D70Z Performance of Urinary Filtration, Intermittent, Less than 6 Hours Per Day (ICD-10-PCS; 2024-02-11)
PROC: 5A1D70Z Performance of Urinary Filtration, Intermittent, Less than 6 Hours Per Day (ICD-10-PCS; 2024-02-13)
PROC: 5A1D70Z Performance of Urinary Filtration, Intermittent, Less than 6 Hours Per Day (ICD-10-PCS; 2024-02-15)
PROC: 5A1D70Z Performance of Urinary Filtration, Intermittent, Less than 6 Hours Per Day (ICD-10-PCS; 2024-02-16)
PROC: 5A1D70Z Performance of Urinary Filtration, Intermittent, Less than 6 Hours Per Day (ICD-10-PCS; 2024-02-19)
PROC: 5A1D70Z Performance of Urinary Filtration, Intermittent, Less than 6 Hours Per Day (ICD-10-PCS; 2024-02-21)
PROC: 5A1D70Z Performance of Urinary Filtration, Intermittent, Less than 6 Hours Per Day (ICD-10-PCS; 2024-02-23)
PROC: 5A1D70Z Performance of Urinary Filtration, Intermittent, Less than 6 Hours Per Day (ICD-10-PCS; 2024-02-26)
PROC: 5A1D70Z Performance of Urinary Filtration, Intermittent, Less than 6 Hours Per Day (ICD-10-PCS; 2024-02-28)
PROC: 5A1D70Z Performance of Urinary Filtration, Intermittent, Less than 6 Hours Per Day (ICD-10-PCS; 2024-03-01)
PROC: 5A1D70Z Performance of Urinary Filtration, Intermittent, Less than 6 Hours Per Day (ICD-10-PCS; 2024-03-04)
PROC: 5A1D70Z Performance of Urinary Filtration, Intermittent, Less than 6 Hours Per Day (ICD-10-PCS; 2024-03-07)
PROC: 5A1D70Z Performance of Urinary Filtration, Intermittent, Less than 6 Hours Per Day (ICD-10-PCS; 2024-03-09)
PROC: 5A1D70Z Performance of Urinary Filtration, Intermittent, Less than 6 Hours Per Day (ICD-10-PCS; 2024-03-11)
PROC: 5A1D70Z Performance of Urinary Filtration, Intermittent, Less than 6 Hours Per Day (ICD-10-PCS; 2024-03-13)
PROC: 5A1D70Z Performance of Urinary Filtration, Intermittent, Less than 6 Hours Per Day (ICD-10-PCS; 2024-03-15)
PROC: 5A1D70Z Performance of Urinary Filtration, Intermittent, Less than 6 Hours Per Day (ICD-10-PCS; 2024-03-18)
PROC: 5A1D70Z Performance of Urinary Filtration, Intermittent, Less than 6 Hours Per Day (ICD-10-PCS; 2024-03-20)
PROC: 5A1D70Z Performance of Urinary Filtration, Intermittent, Less than 6 Hours Per Day (ICD-10-PCS; 2024-03-22)
DX: F25.0 Schizoaffective disorder, bipolar type (principal); N18.6 End stage renal disease; I12.0 Hypertensive chronic kidney disease with stage 5 chronic kidney disease or end stage renal disease; E03.9 Hypothyroidism, unspecified; E11.22 Type 2 diabetes mellitus with diabetic chronic kidney disease; Z99.2 Dependence on renal dialysis; Z20.822 Contact with and (suspected) exposure to COVID-19; E78.5 Hyperlipidemia, unspecified; R31.9 Hematuria, unspecified; E87.5 Hyperkalemia; D63.1 Anemia in chronic kidney disease; G47.00 Insomnia, unspecified; M10.9 Gout, unspecified; Z79.4 Long term (current) use of insulin; Z86.14 Personal history of Methicillin resistant Staphylococcus aureus infection; Z91.199 Patient's noncompliance with other medical treatment and regimen due to unspecified reason
CPT/HCPCS: 71045; 74178; 76770; 80048; 80053; 80061; 80164; 80307; 81001; 81002; 83036; 83540; 83550; 83735; 83880; 83970; 84100; 84443; 84484; 85014; 85018; 85025; 87081; 87340; 87481; 90935; 93005; 99285; G0378; G0480; J0885; J1200; J1630; J2060; J3230; 36415-L1; 36415-TC

== ENCOUNTER 2024-03-24 08:43 | Inpatient (IN) | payer MEDICARE, OTHER ==
[2024-03-24 10:30] VITALS: BP 160/77; PULSE 66; RESP 16; TEMP 97.6; O2SAT 100
[2024-03-24 11:10] VITALS: BP 152/78; PULSE 67; RESP 18; TEMP 98.2; O2SAT 100
[2024-03-24] MEDS: HALOPERIDOL LACTATE 5 MG/ML VIAL IM ONE (13:30)
[2024-03-24] MEDS: LORazepam 2 MG/ML VIAL IM ONE (13:30)
[2024-03-24 16:43] VITALS: BP 145/82; PULSE 73; RESP 18; TEMP 98; O2SAT 98
[2024-03-24] MEDS: SEVELAMER CARBONATE 800 MG TABLET PO SCH (17:44)
[2024-03-24 20:00] VITALS: BP 151/79; PULSE 69; RESP 17; TEMP 97.7; O2SAT 98
[2024-03-24] MEDS: ATORVASTATIN CALCIUM 40 MG TABLET PO SCH (21:00)
[2024-03-24] MEDS ORDERED: GUAIFDM PO (23:36)
[2024-03-24] MEDS ORDERED: NICO-703 TD (23:36)
[2024-03-24] MEDS ORDERED: ONDA-104 PO (23:36)
[2024-03-24] MEDS ORDERED: DOCU-385 PO (23:36)
[2024-03-24] MEDS ORDERED: ALBU18HF12 IH (23:36)
[2024-03-24] MEDS ORDERED: VALP250C48 PO ×2 (23:36)
[2024-03-24] MEDS ORDERED: ZOLP-162 PO (23:36)
[2024-03-24] MEDS ORDERED: HALO5TAB23 PO (23:36)
[2024-03-24] MEDS ORDERED: TRAZ-257 PO (23:36)
[2024-03-24] MEDS ORDERED: PANT-31 PO (23:36)
[2024-03-24] MEDS ORDERED: ACET650S39 PO (23:36)
[2024-03-24] MEDS ORDERED: LOPE-232 PO (23:36)
[2024-03-24] MEDS ORDERED: CLON0.1T2 PO (23:36)
[2024-03-24] MEDS ORDERED: LORA-1001 PO (23:36)
[2024-03-25] VITALS (16 sets, daily range): BP systolic 131–187; BP diastolic 61–97; PULSE 65–74; RESP 18–20; TEMP 97.2–98; O2SAT 97–98
[2024-03-25] MEDS ORDERED: SODIUM CHLORIDE 0.9% 1,000 ML ONE (06:06)
[2024-03-25] MEDS: LORazepam 2 MG TABLET PO PRN (06:13)
[2024-03-25] MEDS: LEVOTHYROXINE SODIUM 75 MCG TABLET PO SCH (06:30)
[2024-03-25] MEDS ORDERED: ACETAMINOPHEN 325 MG TABLET PO PRN (06:45)
[2024-03-25] MEDS ORDERED: GuaiFENesin/D-METHORPHAN [SUGAR-FREE] 200-20MG/10 ML SYRUP UDCUP PO PRN (06:45)
[2024-03-25] MEDS ORDERED: LOPERAMIDE HCL 2 MG CAPSULE PO PRN (06:45)
[2024-03-25 06:56] LABS: BASOPHILS % (AUTO) 0.5 % (0.0-2.0); EOSINOPHILS % (AUTO) 1.1 % (1.0-6.0); HEMATOCRIT 22.9 % (41-53); HEMOGLOBIN 7.7 g/dL (13.5-17.5); LYMPHOCYTES # (AUTO) 1.5 K/uL (1.0-4.8); LYMPHOCYTES % (AUTO) 23.1 % (22.0-44.0); MEAN CORPUSCULAR HGB CONC 33.8 G/dL (31.0-37.0); MEAN CORPUSCULAR VOLUME 98 fL (80-100); MONOCYTES # (AUTO) 0.6 K/uL (0.1-1.0); MONOCYTES % (AUTO) 8.3 % (2.0-9.0); NEUTROPHILS # (AUTO) 4.4 K/uL (1.8-7.7); PLATELET COUNT (AUTO) 59 K/uL (150-450); RED BLOOD CELL COUNT(AUTO) 2.34 MIL/uL (4.50-5.90); RED CELL DISTRIBUTION WIDTH 17.1 % (11.5-14.5); WHITE BLOOD COUNT (AUTO) 6.6 K/uL (4.5-11.0)
[2024-03-25] MEDS ORDERED: ZOLPIDEM TARTRATE 10 MG TABLET PO PRN (08:00)
[2024-03-25] MEDS ORDERED: ALBUTEROL SULFATE HFA 90 MCG/PUFF 8 GM INHALER IH PRN (08:30)
[2024-03-25] MEDS: NICOTINE 14 MG/24 HOUR PATCH TD SCH (09:00)
[2024-03-25] MEDS: DOCUSATE SODIUM 100 MG CAPSULE PO SCH (09:00)
[2024-03-25] MEDS: SODIUM ZIRCONIUM CYCLOSILICATE 5 GM POWDER PACKET PO SCH (09:00)
[2024-03-25] MEDS ORDERED: SODIUM CHLORIDE 0.9% 500 ML IV ONE (10:42)
[2024-03-25] MEDS: FOLIC ACID/VIT B COMPLEX AND C TABLET PO SCH (13:03)
[2024-03-25] MEDS: PANTOPRAZOLE SODIUM 40 MG DR TABLET PO SCH (13:04)
[2024-03-25] MEDS: CloNIDine HCL 0.1 MG TABLET PO SCH (13:04)
[2024-03-25] MEDS: VALPROIC ACID 250 MG CAPSULE PO SCH (13:04)
[2024-03-25] MEDS: BACITRACIN 28 GM OINTMENT TP SCH (13:05)
[2024-03-25 15:54] LABS: HEMATOCRIT 25.5 % (41-53); HEMOGLOBIN 8.4 g/dL (13.5-17.5)
[2024-03-26 06:15] VITALS: BP 146/88; PULSE 71; RESP 20; TEMP 98; O2SAT 97
[2024-03-26 07:02] LABS: BASOPHILS % (AUTO) 0.6 % (0.0-2.0); EOSINOPHILS % (AUTO) 1.6 % (1.0-6.0); HEMOGLOBIN 9.5 g/dL (13.5-17.5); LYMPHOCYTES # (AUTO) 0.9 K/uL (1.0-4.8); LYMPHOCYTES % (AUTO) 13.7 % (22.0-44.0); MEAN CORPUSCULAR HEMOGLOBIN 32.3 pg (26.0-34.0); MEAN CORPUSCULAR VOLUME 95 fL (80-100); MONOCYTES # (AUTO) 0.6 K/uL (0.1-1.0); MONOCYTES % (AUTO) 8.2 % (2.0-9.0); NEUTROPHILS # (AUTO) 5.2 K/uL (1.8-7.7); NEUTROPHILS % (AUTO) 75.9 % (40.0-70.0); PLATELET COUNT (AUTO) 62 K/uL (150-450); RED BLOOD CELL COUNT(AUTO) 2.96 MIL/uL (4.50-5.90); RED CELL DISTRIBUTION WIDTH 18.1 % (11.5-14.5); WHITE BLOOD COUNT (AUTO) 6.8 K/uL (4.5-11.0)
[2024-03-26 07:45] VITALS: BP 169/82; PULSE 70; RESP 18; TEMP 97.6; O2SAT 97
[2024-03-26 07:56] VITALS: BP 169/82; PULSE 70; RESP 18; TEMP 97.6; O2SAT 97
[2024-03-26] MEDS: DOXERCALCIFEROL 0.5 MCG CAPSULE PO SCH (08:02)
[2024-03-26] MEDS: EPOETIN ALFA 10,000 UNITS/ML VIAL SQ SCH (08:02)
[2024-03-26 12:00] VITALS: BP 161/62; PULSE 74; RESP 18; TEMP 97.9; O2SAT 97
[2024-03-26] MEDS: ONDANSETRON 4 MG TABLET PO PRN (12:44)
[2024-03-26 14:57] VITALS: BP 145/76; PULSE 57; RESP 18; TEMP 96.7; O2SAT 92
[2024-03-26] MEDS ORDERED: TraZODone HCL 100 MG TABLET PO PRN (16:15)
[2024-03-26 20:00] VITALS: BP 144/85; PULSE 67; RESP 18; TEMP 97.4; O2SAT 96
[2024-03-26] MEDS: TraZODone HCL 100 MG TABLET PO SCH (20:49)
[2024-03-27] VITALS (12 sets, daily range): BP systolic 127–159; BP diastolic 56–93; PULSE 50–68; RESP 18; TEMP 97.6–98.2; O2SAT 95–99
[2024-03-27] MEDS ORDERED: SODIUM CHLORIDE 0.9% 2,000 ML ONE (11:13)
[2024-04-05] MEDS ORDERED: ARIPiprazole LAUROXIL ER SUSPENSION 882 MG/3.2 ML SYRINGE IM SCH (09:00)
== END 2024-03-27 19:18 | DRG 682 ==
LOC: 6S 10:00 → 4E 03-27 09:09
PROVIDERS: ADMIT Internal Medicine; ATTEND Internal Medicine
PROC: 5A1D70Z Performance of Urinary Filtration, Intermittent, Less than 6 Hours Per Day (ICD-10-PCS; principal; 2024-03-25)
PROC: 30233N1 Transfusion of Nonautologous Red Blood Cells into Peripheral Vein, Percutaneous Approach (ICD-10-PCS; 2024-03-25)
PROC: 5A1D70Z Performance of Urinary Filtration, Intermittent, Less than 6 Hours Per Day (ICD-10-PCS; 2024-03-27)
DX: I12.0 Hypertensive chronic kidney disease with stage 5 chronic kidney disease or end stage renal disease (principal); N18.6 End stage renal disease; F20.0 Paranoid schizophrenia; D63.1 Anemia in chronic kidney disease; E11.22 Type 2 diabetes mellitus with diabetic chronic kidney disease; E03.9 Hypothyroidism, unspecified; E78.5 Hyperlipidemia, unspecified; Z99.2 Dependence on renal dialysis; Z79.4 Long term (current) use of insulin; Z86.14 Personal history of Methicillin resistant Staphylococcus aureus infection; E87.70 Fluid overload, unspecified
CPT/HCPCS: 85014; 85018; 85025; 86850; 86900; 86901; 86923; 87340; 90935; J0885; J1630; J2060; J3535; J7030; J7040; P9016; Q0162